=== PATIENT | male | born 1995 | race Caucasian/White ===

== ENCOUNTER 2017-06-03 22:50 | Emergency (ER) | payer BC ==
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
[2017-06-04 00:50] VITALS: BP 118/70
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
== END 2017-06-04 00:45 | disposition home or self-care (01) ==
LOC: MW.ED 22:50
DX: S30.0XXA Contusion of lower back and pelvis, initial encounter (principal); Z88.1 Allergy status to other antibiotic agents; Z88.8 Allergy status to other drugs, medicaments and biological substances; Y04.8XXA Assault by other bodily force, initial encounter
CPT/HCPCS: 72100; 72100-26; 80305; 81001; 99282; 99283

== ENCOUNTER 2017-08-20 19:56 | Emergency (ER) | payer BC ==
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
[2017-08-20] MEDS ORDERED: Acetaminophen/HYDROcodone 325-5 MG Tab PO ONE (20:19)
[2017-08-20] MEDS ORDERED: Acetaminophen 325 MG Tab PO ONE (20:46)
[2017-08-20 21:32] VITALS: BP 120/50
--- NOTE | 2017-08-22 18:05 | CR ---
EXAM DATE: 08/20/17 PATIENT'S AGE: 22 Patient: [facility] Facility: [place], [place] Site . Site : 1995 Study: XRay Extremity Right [id number]/23/2017 8:29:47 PM Ordering Physician: Fani Victor Final Report: INDICATION: pain, crush injury FINDINGS: Three views of the right hand show no evidence of acute fracture or dislocation. No other bony or soft tissue abnormalities identified. Dictated by Herson Estrada MD @ 08/20/2017 9:01:29 PM Dictated by: Herson Estrada MD @ 08/20/2017 21:01:41 (Electronic Signature) Report Signed by Proxy. [facility]
== END 2017-08-20 21:33 | disposition home or self-care (01) ==
LOC: MW.ED 19:56
DX: M79.641 Pain in right hand (principal); F17.210 Nicotine dependence, cigarettes, uncomplicated; Z88.1 Allergy status to other antibiotic agents; Z88.8 Allergy status to other drugs, medicaments and biological substances; Z90.49 Acquired absence of other specified parts of digestive tract
CPT/HCPCS: 73130; 99283; A9270; 99282

== ENCOUNTER 2018-03-01 20:28 | Emergency (ER) | payer BC, OTHER ==
--- NOTE | 2018-03-01 20:54 | EDM.PDOC ---
ED HPI GENERAL MEDICAL PROBLEM - General Chief Complaint: Respiratory Problem Stated Complaint: CHEST PAIN Time Seen by Provider: 03/01/18 20:40 - History of Present Illness INITIAL COMMENTS - FREE TEXT/NARRATIVE: HISTORY AND PHYSICAL: History of present illness: Patient is a 22-year-old male with no pre-existing medical problems that he is aware of but who smokes cigarettes and presents with 4 days of cough productive of green phlegm bodyaches and chills and a sore throat from coughing. He also says that he is coughing so hard that it is occasionally making him gag and vomit. He has no abdominal pain diarrhea and states no chest pain or shortness of breath to me. The patient did not get his flu shot this year and he says that over the last 4 days he has not used any [id number] medications for his cough chills because he does not like to take medications. Review of systems: As per history of present illness and below otherwise all systems reviewed and negative. Past medical history: As per history of present illness and as reviewed below otherwise noncontributory. Surgical history: As per history of present illness and as reviewed below otherwise noncontributory. Social history: No reported history of drug or alcohol abuse. Family history: As per history of present illness and as reviewed below otherwise noncontributory. Physical exam: General: Well-developed well-nourished man who speaks clearly and easily in the ED and is not breathless or have nasal quality to voice. HEENT: Atraumatic, normocephalic, pupils reactive, negative for conjunctival pallor or scleral icterus, mucous membranes moist, throat clear, neck supple, nontender, trachea midline. There is no cervical adenopathy or nuchal rigidity Lungs: Clear to auscultation, breath sounds equal bilaterally, chest nontender. There is no work of breathing wheezing or stridor Heart: S1S2, regular rate and rhythm no overt murmurs Abdomen: Soft, nondistended, nontender. NABS Pelvis: Deferred Genitourinary: Deferred. Rectal: Deferred. Extremities: Atraumatic, negative for cords or calf pain. Neurovascular unremarkable. Neuro: Awake, alert, oriented. Cranial nerves II through XII unremarkable. Cerebellum unremarkable. Motor and sensory unremarkable throughout. Exam nonfocal. Diagnostics: Influenza chest x-ray Therapeutics: spacer He was offered Insty Meds but declines and will fill the prescriptions tomorrow Impression: Acute bronchitis Definitive disposition and diagnosis as appropriate pending reevaluation and review of above. Generalized Pain Score (Numeric/FACES): 2 - Related Data Allergies Allergy/AdvReac Type Severity Reaction Status Date / Time amoxicillin Allergy Intermediate Hives Verified 08/20/17 20:01 morphine Allergy Other Verified 03/01/18 20:40 Penicillins Allergy Other Verified 03/01/18 20:40 Tetanus Vaccines and Toxoid Allergy Airway Verified 08/20/17 20:01 Tightness trazodone Allergy Other Verified 03/01/18 20:40 lorazepam [From Ativan] AdvReac Unknown Other Verified 08/20/17 20:01 Home Meds: Home Meds . [No Known Home Meds] 06/03/17 [History] Past Medical History - Past Health History Medical/Surgical History: Denies Medical/Surgical History - Past Surgical History HEENT Surgical History: Reports: Oral Surgery GI Surgical History: Reports: Appendectomy Social & Family History - Family History Family Medical History: Noncontributory Cardiac: Reports: [place] Endocrine/Metabolic: Reports: Diabetes, type II - Tobacco Use Smoking Status *Q: Current Every Day Smoker Years of Tobacco use: 4 Packs/Tins Daily: 0.5 Used Tobacco, but Quit: Yes Month/Year Tobacco Last Used: 1 - Caffeine Use Caffeine Use: Reports: Soda - Recreational Drug Use Recreational Drug Use: No ED ROS GENERAL - Review of Systems Review Of Systems: ROS reveals no pertinent complaints other than HPI. ED EXAM, GENERAL - Physical Exam Exam: See Below (See dictation) Course - Vital Signs Last Recorded V/S: Last Vital Signs Temp 37.0 C 03/01/18 20:41 Pulse 62 03/01/18 20:41 Resp 18 03/01/18 20:41 BP 130/72 03/01/18 20:41 Pulse Ox 97 03/01/18 20:41 - Orders/Labs/Meds Orders: Active Orders 24 hr Category Date Time Status Chest 2V [CR] Stat Exams 03/01/18 20:50 Taken INFLUENZA A+B AG SCREEN [RM] Stat Lab 03/01/18 21:20 Ordered Departure - Departure Time of Disposition: 21:51 Disposition: Home, Self-Care 01 Condition: Good Clinical Impression: Acute bronchitis Qualifiers: Bronchitis organism: unspecified organism Qualified Code(s): J20.9 - Acute bronchitis, unspecified - Discharge Information Referrals: Neymar Hoyos MD [Primary Care Provider] - Forms: ED Department Discharge Additional Instructions: The following information is given to patients seen in the emergency department who are being discharged to home. This information is to outline your options for follow-up care. We provide all patients seen in our emergency department with a follow-up referral. The need for follow-up, as well as the timing and circumstances, are variable depending upon the specifics of your emergency department visit. If you don't have a primary care physician on staff, we will provide you with a referral. We always advise you to contact your personal physician following an emergency department visit to inform them of the circumstance of the visit and for follow-up with them and/or the need for any referrals to a consulting specialist. The emergency department will also refer you to a specialist when appropriate. This referral assures that you have the opportunity for followup care with a specialist. All of these measure are taken in an effort to provide you with optimal care, which includes your followup. Under all circumstances we always encourage you to contact your private physician who remains a resource for coordinating your care. When calling for followup care, please make the office aware that this follow-up is from your recent emergency room visit. If for any reason you are refused follow-up, please contact the [facility] emergency department at and ask to speak to the emergency department charge nurse. [facility] Primary care- Internal Medicine and Family [place] [phone] Please try to reduce and/or eliminate smoking and push hydration as we discussed. Please call and schedule a follow-up appointment in the clinic for further care and evaluation and return to ER as needed and as discussed. Please use the albuterol inhaler your given with a spacer as well as take the Medrol pack. - My Orders Last 24 Hours: My Active Orders 03/01/18 20:50 Chest 2V [CR] Stat 03/01/18 21:20 INFLUENZA A+B AG SCREEN [RM] Stat - Assessment/Plan Last 24 Hours: My Active Orders 03/01/18 20:50 Chest 2V [CR] Stat 03/01/18 21:20 INFLUENZA A+B AG SCREEN [RM] Stat
[2018-03-02 01:12] VITALS: BP 99/53
--- NOTE | 2018-03-02 10:20 | CR ---
EXAM DATE: 03/01/18 PATIENT'S AGE: 22 Patient: [facility] Facility: [place], [place] Site . Site : 1995 Study: XRay Chest [id number]/4/2018 9:30:58 PM Ordering Physician: Jimy Deal Final Report: INDICATION: chest pain, cough, hx of pneumonia/bronchitis TECHNIQUE: Chest 2 views. COMPARISON: None. FINDINGS: Cardiovascular and mediastinum: Heart size and vasculature are normal in caliber and appearance. Mediastinum is within normal limits. Lungs and pleural spaces: Lungs are clear. No sign of infiltrate or mass. No sign of pleural effusion. No pneumothorax. Bones and soft tissues: No significant findings. IMPRESSION: Unremarkable chest. Dictated by: Scott Rangel MD @ 03/01/2018 21:35:18 (Electronic Signature) Report Signed by Proxy. [facility]
== END 2018-03-01 22:10 | disposition home or self-care (01) ==
LOC: MW.ED 20:28
DX: J20.9 Acute bronchitis, unspecified (principal); J11.1 Influenza due to unidentified influenza virus with other respiratory manifestations; Z88.1 Allergy status to other antibiotic agents; Z88.5 Allergy status to narcotic agent; Z88.0 Allergy status to penicillin; Z88.7 Allergy status to serum and vaccine; Z87.891 Personal history of nicotine dependence
CPT/HCPCS: 71046; 71046-26; 87804; 99283

== ENCOUNTER 2018-06-19 21:12 | Emergency (ER) | payer SELFPAY ==
[2018-06-19] MEDS ORDERED: Benzocaine 20% Topical Spray UD MUCMEM ONE (21:32)
[2018-06-19] MEDS ORDERED: Lidocaine 2% Viscous Solution 15 ML Cup PO ONE (21:32)
--- NOTE | 2018-06-19 21:32 | EDM.PDOC ---
ED HPI GENERAL MEDICAL PROBLEM - General Chief Complaint: ENT Problem Stated Complaint: TOOTH PAIN Time Seen by Provider: 06/19/18 21:19 Source of Information: Reports: Patient History Limitations: Reports: No Limitations - History of Present Illness INITIAL COMMENTS - FREE TEXT/NARRATIVE: HISTORY AND PHYSICAL: History of present illness: Patient is a 23-year-old male who presents to the emergency room today complaints of sore throat and dental pain. He does have multiple dental caries and is concerned that he has either a throat or tooth infection. States he does smoke and has a dry nonproductive cough. Denies any fever, chills, chest pain or shortness of breath. Denies any GI or symptoms. Review of systems: As per history of present illness and below otherwise all systems reviewed and negative. Past medical history: As per history of present illness and as reviewed below otherwise noncontributory. Surgical history: As per history of present illness and as reviewed below otherwise noncontributory. Social history: No reported history of drug or alcohol abuse. Family history: As per history of present illness and as reviewed below otherwise noncontributory. Physical exam: General: Well-developed and well-nourished 23-year-old male. Alert and oriented. Nontoxic appearing and in no acute distress. HEENT: Atraumatic, normocephalic, pupils equal and reactive bilaterally, negative for conjunctival pallor or scleral icterus, mucous membranes moist, mild throat erythema without exudate otherwise throat clear, multiple dental caries noted, neck supple, nontender, trachea midline. No drooling or trismus noted. No meningeal signs Lungs: Clear to auscultation, breath sounds equal bilaterally, chest nontender. Heart: S1S2, regular rate and rhythm without overt murmur Abdomen: Soft, nondistended, nontender. Negative for masses or hepatosplenomegaly. Negative for costovertebral tenderness. Pelvis: Stable nontender. Genitourinary: Deferred. Rectal: Deferred. Skin: Intact, warm, dry. No lesions or rashes noted. Extremities: Atraumatic, negative for cords or calf pain. Neurovascular unremarkable. Neuro: Awake, alert, oriented. Cranial nerves II through XII unremarkable. Cerebellum unremarkable. Motor and sensory unremarkable throughout. Exam nonfocal. Notes: Patient's throat is erythematous and he does have a dry cough along with a long- standing history of smoking. I will treat him with a Z-Reynold and give him dental balls for the dental caries that he has. Her symptoms follow-up with the primary caregiver. Diagnostics: [] Therapeutics: [] Impression: Pharyngitis Dental Caries Plan: 1. Stop smoking. Take antibiotic as directed. 2. Tylenol and/or Ibuprofen as needed for pain. Tramadol for moderate to severe pain. 3. Follow up with primary care provider in the next week. Return to the ED as needed and as discussed. Definitive disposition and diagnosis as appropriate pending reevaluation and review of above. right jaw Pain Score (Numeric/FACES): 6 - Related Data Allergies Allergy/AdvReac Type Severity Reaction Status Date / Time amoxicillin Allergy Intermediate Hives Verified 08/20/17 20:01 morphine Allergy Agitation Verified 06/19/18 21:27 Penicillins Allergy Other Verified 06/19/18 21:27 Tetanus Vaccines and Toxoid Allergy Airway Verified 08/20/17 20:01 Tightness trazodone Allergy Other Verified 06/19/18 21:27 lorazepam [From Ativan] AdvReac Unknown Agitation Verified 06/19/18 21:27 Home Meds: Home Meds . [No Known Home Meds] 06/03/17 [History] Past Medical History - Past Health History Medical/Surgical History: Denies Medical/Surgical History - Past Surgical History HEENT Surgical History: Reports: Oral Surgery GI Surgical History: Reports: Appendectomy Social & Family History - Family History Family Medical History: Noncontributory Cardiac: Reports: [place] Endocrine/Metabolic: Reports: Diabetes, type II - Caffeine Use Caffeine Use: Reports: Soda ED ROS ENT - Review of Systems Review Of Systems: ROS reveals no pertinent complaints other than HPI. ED EXAM, ENT - Physical Exam Exam: See Below (See dictation) Course - Vital Signs Last Recorded V/S: Last Vital Signs Temp 97.7 F 06/19/18 21:50 Pulse 60 06/19/18 21:50 Resp 18 06/19/18 21:50 BP 105/55 L 06/19/18 21:50 Pulse Ox 98 06/19/18 21:50 - Orders/Labs/Meds Meds: Medications Discontinued Medications Generic Name Dose Route Start Last Admin Trade Name Freq PRN Reason Stop Dose Admin Benzocaine 2 each 06/19/18 21:32 06/19/18 21:43 Hurricaine One 20% MUCMEM 06/19/18 21:33 2 each ONETIME ONE Administration Lidocaine HCl 15 ml 06/19/18 21:32 06/19/18 21:43 Xylocaine 2% Viscous PO 06/19/18 21:33 15 ml ONETIME ONE Administration Departure - Departure Time of Disposition: 22:05 Disposition: Home, Self-Care 01 Clinical Impression: Dental caries Pharyngitis Qualifiers: Pharyngitis/tonsillitis etiology: unspecified etiology Qualified Code(s): J02.9 - Acute pharyngitis, unspecified - Discharge Information Instructions: Pharyngitis, [id number] Referrals: PCP,None [Primary Care Provider] - Forms: ED Department Discharge Additional Instructions: The following information is given to patients seen in the emergency department who are being discharged to home. This information is to outline your options for follow-up care. We provide all patients seen in our emergency department with a follow-up referral. The need for follow-up, as well as the timing and circumstances, are variable depending upon the specifics of your emergency department visit. If you don't have a primary care physician on staff, we will provide you with a referral. We always advise you to contact your personal physician following an emergency department visit to inform them of the circumstance of the visit and for follow-up with them and/or the need for any referrals to a consulting specialist. The emergency department will also refer you to a specialist when appropriate. This referral assures that you have the opportunity for follow-up care with a specialist. All of these measure are taken in an effort to provide you with optimal care, which includes your follow-up. Under all circumstances we always encourage you to contact your private physician who remains a resource for coordinating your care. When calling for follow-up care, please make the office aware that this follow-up is from your recent emergency room visit. If for any reason you are refused follow-up, please contact the [facility] Emergency Department at and asked to speak to the emergency department charge nurse. [facility] [address] [place] [id number] 1. Stop smoking. Take antibiotic as directed. 2. Tylenol and/or Ibuprofen as needed for pain. Tramadol for moderate to severe pain. 3. Follow up with primary care provider in the next week. Return to the ED as needed and as discussed.
[2018-06-19 21:53] VITALS: BP 105/55
== END 2018-06-19 21:50 | disposition home or self-care (01) ==
LOC: MW.ED 21:12
DX: K02.9 Dental caries, unspecified (principal); J02.9 Acute pharyngitis, unspecified; Z88.1 Allergy status to other antibiotic agents; Z88.8 Allergy status to other drugs, medicaments and biological substances; Z88.0 Allergy status to penicillin; Z88.5 Allergy status to narcotic agent
CPT/HCPCS: 99283; A9270; 99282

== ENCOUNTER 2018-07-29 15:27 | Emergency (ER) | payer BC ==
--- NOTE | 2018-07-29 15:35 | EDM.PDOC ---
ED HPI GENERAL MEDICAL PROBLEM - General Chief Complaint: Gastrointestinal Problem Stated Complaint: VOMITING Time Seen by Provider: 07/29/18 15:35 Source of Information: Reports: Patient History Limitations: Reports: No Limitations - History of Present Illness INITIAL COMMENTS - FREE TEXT/NARRATIVE: HISTORY AND PHYSICAL: []23-year-old male presenting with vomiting History of Present Illness: []Patient states it started at 6:00 this morning he vomited 10-20 times today Denies any abdominal pain States his throat is sore Review of Systems: As per history of present illness and below otherwise all systems reviewed and negative. Past medical history: As per history of present illness and as reviewed below otherwise noncontributory. Surgical history: As per history of present illness and as reviewed below otherwise noncontributory. Social history: No reported history of drug or alcohol abuse. Family history: As per history of present illness and as reviewed below otherwise noncontributory. Physical exam: Alert and oriented young man answering questions in full sentences without any shortness of breath. Nontoxic in appearance. HEENT: Atraumatic, normocehpalic, pupils reactive, negative for conjunctival pallor or scleral icterus, mucous membranes dry throat clear, neck supple, nontender, trachea midline. Lungs: Clear to auscultation, breath sounds equal bilaterally, chest non tender. Heart: S1S2, regular, negative for clicks, rubs, or JVD. Abdomen: Soft, nondistended, nontender. Negative for masses or hepatossplenmegaly. Negative for costovertebral tenderness. Pelvis: Stable nontender. Genitourinary: Deferred. Rectal: Deferred Extremities: Atraumatic, negative for cords or calf pain. Neurovascular unremarkable. Neuro: Awake, alert, oriented. Cranial nerves II through XII unremarkable. Cerebellum unremarkable. Motor and sensory unremarkable throughout. Exam nonfocal. Discussed with the patient and his that all laboratory values are unremarkable Diagnostics: []CBC CMP amylase lipase rapid strep Therapeutics: []IV fluid Zofran Impression: []Gastroenteritis vomiting Mild dehydration Plan: []Discharged home Zofran ODT Small sips of fluid every 20 minutes while awake Follow-up with your primary care provider in 3 days for reevaluation Return to emergency department as directed and discussed Definitive disposition and diagnosis as appropriate pending reevaluation and review of above. Onset: Today, Sudden Duration: Hour(s): Location: Reports: Abdomen Severity: Mild Improves with: Reports: None Worsens with: Reports: None Associated Symptoms: Reports: No Other Symptoms Throat Pain Score (Numeric/FACES): 4 - Related Data Allergies Allergy/AdvReac Type Severity Reaction Status Date / Time amoxicillin Allergy Intermediate Hives Verified 07/29/18 15:34 morphine Allergy Agitation Verified 07/29/18 15:34 Penicillins Allergy Other Verified 07/29/18 15:34 Tetanus Vaccines and Toxoid Allergy Airway Verified 07/29/18 15:34 Tightness trazodone Allergy Other Verified 07/29/18 15:34 lorazepam [From Ativan] AdvReac Unknown Agitation Verified 07/29/18 15:34 Home Meds: Home Meds Ondansetron [Zofran ODT] 4 mg PO Q6H PRN #12 tab.dis 07/29/18 [Rx] Past Medical History - Past Health History Medical/Surgical History: Denies Medical/Surgical History HEENT History: Reports: None Gastrointestinal History: Reports: None Psychiatric History: Reports: Depression, PTSD - Past Surgical History HEENT Surgical History: Reports: Oral Surgery GI Surgical History: Reports: Appendectomy Social & Family History - Family History Family Medical History: Noncontributory Cardiac: Reports: [place] Endocrine/Metabolic: Reports: Diabetes, type II - Caffeine Use Caffeine Use: Reports: Soda ED ROS GENERAL - Review of Systems Review Of Systems: ROS reveals no pertinent complaints other than HPI. ED EXAM, GI/ABD - Physical Exam Exam: See Below (see dictation) Course - Vital Signs Last Recorded V/S: Last Vital Signs Temp 36.7 C 07/29/18 15:35 Pulse 76 07/29/18 15:35 Resp 15 07/29/18 15:35 BP 108/58 L 07/29/18 15:35 Pulse Ox 96 07/29/18 15:35 - Orders/Labs/Meds Orders: Active Orders 24 hr Category Date Time Status CULTURE STREP A CONFIRMATION [] Stat Lab 07/29/18 15:55 Results STREP SCRN A RAPID W CULT CONF [] Stat Lab 07/29/18 15:55 Ordered Sodium Chloride 0.9% [Normal Saline] 1,000 ml Med 07/29/18 15:40 Active IV STAT Sodium Chloride 0.9% [Saline Flush] Med 07/29/18 15:39 Active 10 ml FLUSH ASDIRECTED PRN Sodium Chloride 0.9% [Saline Flush] Med 07/29/18 15:39 Active 2.5 ml FLUSH ASDIRECTED PRN Saline Lock Insert [OM.PC] Stat Oth 07/29/18 15:39 Ordered Medication Orders Sodium Chloride (Normal Saline) 1,000 mls @ 999 mls/hr IV STAT ONE Stop: 07/29/18 16:40 Last Admin: 07/29/18 15:47 Dose: 999 mls/hr Sodium Chloride (Saline Flush) 10 ml FLUSH ASDIRECTED PRN PRN Reason: Keep Vein Open Sodium Chloride (Saline Flush) 2.5 ml FLUSH ASDIRECTED PRN PRN Reason: Keep Vein Open Labs: Laboratory Tests 07/29/18 07/29/18 Range/Units 15:43 15:43 WBC 9.42 (4.0-11.0) K/uL RBC 4.75 (4.50-5.90) M/uL Hgb 14.8 (13.0-17.0) g/dL Hct 41.4 (38.0-50.0) % MCV 87.2 (80.0-98.0) fL MCH 31.2 (27.0-32.0) pg MCHC 35.7 (31.0-37.0) g/dL RDW Std Deviation 40.6 (28.0-62.0) fl RDW Coeff of Robert 13 (11.0-15.0) % Plt Count 159 (150-400) K/uL MPV 9.80 (7.40-12.00) fL Neut % (Auto) 85.2 H (48.0-80.0) % Lymph % (Auto) 4.5 L (16.0-40.0) % [place] % (Auto) 9.7 (0.0-15.0) % Eos % (Auto) 0.5 (0.0-7.0) % Baso % (Auto) 0.1 (0.0-1.5) % Neut # (Auto) 8.0 H (1.4-5.7) K/uL Lymph # (Auto) 0.4 L (0.6-2.4) K/uL [place] # (Auto) 0.9 H (0.0-0.8) K/uL Eos # (Auto) 0.1 (0.0-0.7) K/uL Baso # (Auto) 0.0 (0.0-0.1) K/uL Nucleated RBC % 0.0 /100WBC Nucleated RBCs # 0 K/uL Sodium 140 (136-148) mmol/L Potassium 3.6 (3.5-5.1) mmol/L Chloride 105 (98-107) mmol/L Carbon Dioxide 26.2 (21.0-32.0) mmol/L BUN 19 H (7.0-18.0) mg/dL Creatinine 0.9 (0.8-1.3) mg/dL Est Cr Clr Drug Dosing 129.83 mL/min Estimated GFR (MDRD) > 60.0 ml/min Glucose 85 (74-106) mg/dL Calcium 9.0 (8.5-10.1) mg/dL Total Bilirubin 1.6 H (0.2-1.0) mg/dL AST 13 L (15-37) IU/L ALT 13 L (14-63) IU/L Alkaline Phosphatase 73 (46-116) U/L Total Protein 7.3 (6.4-8.2) g/dL Albumin 4.4 (3.4-5.0) g/dL Globulin 2.9 (2.0-3.5) g/dL Albumin/Globulin Ratio 1.5 (1.3-2.8) Amylase 39 (25-115) U/L Lipase 123 (73-393) U/L Meds: Medications Generic Name Dose Route Start Last Admin Trade Name Freq PRN Reason Stop Dose Admin Sodium Chloride 1,000 mls @ 999 mls/hr 07/29/18 15:40 07/29/18 15:47 Normal Saline IV 07/29/18 16:40 999 mls/hr STAT ONE Administration Sodium Chloride 10 ml 07/29/18 15:39 Saline Flush FLUSH ASDIRECTED PRN Keep Vein Open Sodium Chloride 2.5 ml 07/29/18 15:39 Saline Flush FLUSH ASDIRECTED PRN Keep Vein Open Discontinued Medications Generic Name Dose Route Start Last Admin Trade Name Freq PRN Reason Stop Dose Admin Ondansetron HCl 4 mg 07/29/18 15:40 07/29/18 15:49 Zofran IVPUSH 07/29/18 15:41 4 mg ONETIME ONE Administration Departure - Departure Time of Disposition: 16:19 Disposition: Home, Self-Care 01 Condition: Good Clinical Impression: Vomiting, Gastroenteritis - Discharge Information *PRESCRIPTION DRUG MONITORING PROGRAM REVIEWED*: Not Applicable *COPY OF PRESCRIPTION DRUG MONITORING REPORT IN PATIENT HAMIDA: Not Applicable Prescriptions: Ondansetron [Zofran ODT] 4 mg PO Q6H PRN #12 tab.dis PRN Reason: Nausea/Vomiting Instructions: Nausea and Vomiting, Adult, Viral Gastroenteritis, Adult, Easy-to -Read Referrals: PCP,None [Primary Care Provider] - Forms: ED Department Discharge Additional Instructions: The following information is given to patients seen in the emergency department who are being discharged to home. This information is to outline your options for follow-up care. We provide all patients seen in our emergency department with a follow-up referral. The need for follow-up, as well as the timing and circumstances, are variable depending upon the specifics of your emergency department visit. If you don't have a primary care physician on staff, we will provide you with a referral. We always advise you to contact your personal physician following an emergency department visit to inform them of the circumstance of the visit and for follow-up with them and/or the need for any referrals to a consulting specialist. The emergency department will also refer you to a specialist when appropriate. This referral assures that you have the opportunity for followup care with a specialist. All of these measure are taken in an effort to provide you with optimal care, which includes your followup. Under all circumstances we always encourage you to contact your private physician who remains a resource for coordinating your care. When calling for followup care, please make the office aware that this follow-up is from your recent emergency room visit. If for any reason you are refused follow-up, please contact the [facility] emergency department at and asked to speak to the emergency department charge nurse. Discharged home Zofran ODT Small sips of fluid every 20 minutes while awake Follow-up with your primary care provider in 3 days for reevaluation Return to emergency department as directed and discussed - My Orders Last 24 Hours: My Active Orders 07/29/18 15:39 Sodium Chloride 0.9% [Saline Flush] 10 ml FLUSH ASDIRECTED PRN Sodium Chloride 0.9% [Saline Flush] 2.5 ml FLUSH ASDIRECTED PRN Saline Lock Insert [OM.PC] Stat 07/29/18 15:40 Sodium Chloride 0.9% [Normal Saline] 1,000 ml IV STAT 07/29/18 15:55 CULTURE STREP A CONFIRMATION [RM] Stat STREP SCRN A RAPID W CULT CONF [RM] Stat - Assessment/Plan Last 24 Hours: My Active Orders 07/29/18 15:39 Sodium Chloride 0.9% [Saline Flush] 10 ml FLUSH ASDIRECTED PRN Sodium Chloride 0.9% [Saline Flush] 2.5 ml FLUSH ASDIRECTED PRN Saline Lock Insert [OM.PC] Stat 07/29/18 15:40 Sodium Chloride 0.9% [Normal Saline] 1,000 ml IV STAT 07/29/18 15:55 CULTURE STREP A CONFIRMATION [RM] Stat STREP SCRN A RAPID W CULT CONF [RM] Stat
[2018-07-29] MEDS ORDERED: Sodium Chloride 0.9% 10 ML Syringe FLUSH PRN (15:39)
[2018-07-29] MEDS ORDERED: Sodium Chloride 0.9% 2.5 ML Syringe FLUSH PRN (15:39)
[2018-07-29] MEDS ORDERED: Ondansetron 4 MG/2 ML SDV IVPUSH ONE (15:40)
[2018-07-29] MEDS ORDERED: Sodium Chloride 0.9% 1,000 ML IV ONE (15:40)
[2018-07-29 15:41] VITALS: BP 108/58
[2018-07-29 16:12] LABS: CHLORIDE,CL 105 mmol/L (98-107); SODIUM,NA 140 mmol/L (136-148)
== END 2018-07-29 16:35 | disposition home or self-care (01) ==
LOC: MW.ED 15:27
DX: K52.9 Noninfective gastroenteritis and colitis, unspecified (principal); Z88.1 Allergy status to other antibiotic agents; Z88.5 Allergy status to narcotic agent; Z88.8 Allergy status to other drugs, medicaments and biological substances
CPT/HCPCS: 36415; 80053; 82150; 83690; 85025; 87081; 87880; 96361; 96374; 99284; J2405; J7040

== ENCOUNTER 2019-01-21 07:22 | Emergency (ER) | payer BC ==
--- NOTE | 2019-01-21 07:35 | EDM.PDOC ---
ED HPI GENERAL MEDICAL PROBLEM - General Chief Complaint: Skin Complaint Stated Complaint: BLISTERS OR RASH ALL OVER HANDS Time Seen by Provider: 01/21/19 07:35 Source of Information: Reports: Patient - History of Present Illness INITIAL COMMENTS - FREE TEXT/NARRATIVE: HISTORY AND PHYSICAL: History of present illness: [Patient presents with itchy rash on palms and dorsum of hands as well as has one lesion on his mouth/lip he has had similar symptoms in the past with hand- [id number] disease/herpangina last year at this time He has no fever nausea vomiting chills sweats he does have persistent cough over the last 4 days no shortness of breath or wheeze no chest pain headache dizziness or palpitation no bowel or urine symptoms ] Review of systems: As per history of present illness and below otherwise all systems reviewed and negative. Past medical history: As per history of present illness and as reviewed below otherwise noncontributory. Surgical history: As per history of present illness and as reviewed below otherwise noncontributory. Social history: No reported history of drug or alcohol abuse. Family history: As per history of present illness and as reviewed below otherwise noncontributory. Physical exam: HEENT: Atraumatic, normocephalic, pupils reactive, negative for conjunctival pallor or scleral icterus, mucous membranes moist, throat clear, neck supple, nontender, trachea midline. Lungs: Clear to auscultation, breath sounds equal bilaterally, chest nontender. Heart: S1S2, regular, negative for clicks, rubs, or JVD. Abdomen: Soft, nondistended, nontender. Negative for masses or hepatosplenomegaly. Negative for costovertebral tenderness. Pelvis: Stable nontender. Genitourinary: Deferred. Rectal: Deferred. Extremities: Atraumatic, negative for cords or calf pain. Neurovascular unremarkable. Neuro: Awake, alert, oriented. Cranial nerves II through XII unremarkable. Cerebellum unremarkable. Motor and sensory unremarkable throughout. Exam nonfocal. Skin as per history of present illness Diagnostics: [Influenza Chest 1 view ] Therapeutics: [Medrol Dosepak Famotidine Benadryl ]24-48 hours off work Drug dose pack Impression: [ swdf-ntip-srm-mouth disease ] Definitive disposition and diagnosis as appropriate pending reevaluation and review of above. - Related Data Allergies Allergy/AdvReac Type Severity Reaction Status Date / Time amoxicillin Allergy Intermediate Hives Verified 01/21/19 07:41 morphine Allergy Agitation Verified 01/21/19 07:41 Penicillins Allergy Other Verified 01/21/19 07:41 Tetanus Vaccines and Toxoid Allergy Airway Verified 01/21/19 07:41 Tightness trazodone Allergy Other Verified 01/21/19 07:41 lorazepam [From Ativan] AdvReac Unknown Agitation Verified 01/21/19 07:41 Home Meds: Home Meds . [No Known Home Meds] 10/30/18 [History] Past Medical History - Past Health History Medical/Surgical History: Denies Medical/Surgical History HEENT History: Reports: None Cardiovascular History: Reports: None Respiratory History: Reports: Pneumonia, Recurrent Gastrointestinal History: Reports: None Genitourinary History: Reports: None Musculoskeletal History: Reports: Arthritis Neurological History: Reports: None Psychiatric History: Reports: Depression, PTSD Endocrine/Metabolic History: Reports: None Hematologic History: Reports: None Immunologic History: Reports: None Oncologic (Cancer) History: Reports: None Dermatologic History: Reports: None - Infectious Disease History Infectious Disease History: Reports: None - Past Surgical History HEENT Surgical History: Reports: Oral Surgery GI Surgical History: Reports: Appendectomy Social & Family History - Family History Family Medical History: Noncontributory Cardiac: Reports: [place] Endocrine/Metabolic: Reports: Diabetes, type II - Caffeine Use Caffeine Use: Reports: Soda ED ROS GENERAL - Review of Systems Review Of Systems: See Below ED EXAM, SKIN/RASH Exam: See Below Course - Vital Signs Last Recorded V/S: Last Vital Signs Temp 97.9 F 01/21/19 07:40 Pulse 53 L 01/21/19 07:40 Resp 16 01/21/19 07:40 BP 101/51 L 01/21/19 07:40 Pulse Ox 100 01/21/19 07:40 - Orders/Labs/Meds Meds: Medications Discontinued Medications Generic Name Dose Route Start Last Admin Trade Name Freq PRN Reason Stop Dose Admin Diphenhydramine HCl 50 mg 01/21/19 07:48 01/21/19 07:53 Benadryl PO 01/21/19 07:49 50 mg ONETIME ONE Administration Famotidine 20 mg 01/21/19 07:49 01/21/19 07:53 Pepcid PO 01/21/19 07:50 20 mg ONETIME ONE Administration Departure - Departure Time of Disposition: 08:23 Disposition: Home, Self-Care 01 Condition: Good Clinical Impression: Hand, foot and mouth disease - Discharge Information Referrals: Elvis Marie MD [Primary Care Provider] - Forms: ED Department Discharge Additional Instructions: [id number] symptomatic therapy is discussed Medications as prescribed Benadryl and or Zantac pain benefit for itch Rest fluids nutrition All up with primary care in 2 weeks sooner as needed Return if symptoms persist or worsen [facility] [address] [place] [id number] The following information is given to patients seen in the emergency department who are being discharged to home. This information is to outline your options for follow-up care. We provide all patients seen in our emergency department with a follow-up referral. The need for follow-up, as well as the timing and circumstances, are variable depending upon the specifics of your emergency department visit. If you don't have a primary care physician on staff, we will provide you with a referral. We always advise you to contact your personal physician following an emergency department visit to inform them of the circumstance of the visit and for follow-up with them and/or the need for any referrals to a consulting specialist. The emergency department will also refer you to a specialist when appropriate. This referral assures that you have the opportunity for follow-up care with a specialist. All of these measure are taken in an effort to provide you with optimal care, which includes your follow-up. Under all circumstances we always encourage you to contact your private physician who remains a resource for coordinating your care. When calling for follow-up care, please make the office aware that this follow-up is from your recent emergency room visit. If for any reason you are refused follow-up, please contact the [facility] emergency department at and asked to speak to the emergency department charge nurse.
[2019-01-21 07:42] VITALS: BP 101/51
[2019-01-21] MEDS ORDERED: diphenhydrAMINE 50 MG Cap PO ONE (07:48)
[2019-01-21] MEDS ORDERED: Famotidine 20 MG Tab PO ONE (07:49)
--- NOTE | 2019-01-21 08:21 | CR ---
INDICATION: PAIN. PT STATES BILATERAL ARM, NECK, ETC. BLISTERS FOR 4 DAYS INDICATION: Pain. TECHNIQUE: Chest single-view. COMPARISON: 10/30/2018. FINDINGS: Cardiovascular and mediastinum: Heart size and vasculature are normal in caliber and appearance. Mediastinum is within normal limits. Lungs and pleural spaces: Lungs are clear. No sign of infiltrate or mass. No sign of pleural effusion. No pneumothorax. Azygos fissure, a normal anatomic variant. Bones and soft tissues: No significant findings. IMPRESSION: Lungs are clear. Dictated by Bird Pfeiffer MD @ 01/21/2019 8:20:18 AM Dictated by: Bird Pfeiffer MD @ 01/21/2019 08:20:22 (Electronically Signed)
== END 2019-01-21 08:47 | disposition home or self-care (01) ==
LOC: MW.ED 07:22
DX: B08.4 Enteroviral vesicular stomatitis with exanthem (principal); Z88.1 Allergy status to other antibiotic agents; Z88.5 Allergy status to narcotic agent; Z88.0 Allergy status to penicillin; Z88.7 Allergy status to serum and vaccine
CPT/HCPCS: 71045; 87804; 99283; A9270

== ENCOUNTER 2019-03-21 10:21 | Observation (INO) | payer BC, OTHER ==
--- NOTE | 2019-03-21 10:30 | EDM.PDOC ---
ED HPI GENERAL MEDICAL PROBLEM - General Chief Complaint: Gastrointestinal Problem Stated Complaint: bloody stool Time Seen by Provider: 03/21/19 10:30 Source of Information: Reports: Patient - History of Present Illness INITIAL COMMENTS - FREE TEXT/NARRATIVE: HISTORY AND PHYSICAL: History of present illness: [Patient reports bloody stool this morning and dark stools over the last month presents with complaint of bright red blood per rectum along with epigastric pain 3 out of 10 nonradiating no fever, patient has had intermittent nausea no vomiting no chills or sweats she does complain of being lightheaded and dizzy Pain is worsened with food hence he has not been eating] Review of systems: As per history of present illness and below otherwise all systems reviewed and negative. Past medical history: As per history of present illness and as reviewed below otherwise noncontributory. Surgical history: As per history of present illness and as reviewed below otherwise noncontributory. Social history: No reported history of drug or alcohol abuse. Family history: As per history of present illness and as reviewed below otherwise noncontributory. Physical exam: HEENT: Atraumatic, normocephalic, pupils reactive, negative for conjunctival pallor or scleral icterus, mucous membranes moist, throat clear, neck supple, nontender, trachea midline. Lungs: Clear to auscultation, breath sounds equal bilaterally, chest nontender. Heart: S1S2, regular, negative for clicks, rubs, or JVD. Abdomen: Soft, nondistended, nontender. Negative for masses or hepatosplenomegaly. Negative for costovertebral tenderness. Pelvis: Stable nontender. Genitourinary: Deferred. Rectal: Guaiac is negative although I was unable to obtain any stool for the sample no mass scar or lesion internal or external noted Extremities: Atraumatic, negative for cords or calf pain. Neurovascular unremarkable. Neuro: Awake, alert, oriented. Cranial nerves II through XII unremarkable. Cerebellum unremarkable. Motor and sensory unremarkable throughout. Exam nonfocal. Diagnostics: [CBC CMP lipase troponin lactic acid CT abdomen pelvis with contrast ] Therapeutics: [Saline bolus Normal saline 1 25 mL per hour Proton X Zofran ] Impression: [ hypotension Patient admitted for observation and repeat hemoglobin Serial guaiac stools ] Definitive disposition and diagnosis as appropriate pending reevaluation and review of above. Abdomen Pain Score (Numeric/FACES): 3 - Related Data Allergies Allergy/AdvReac Type Severity Reaction Status Date / Time amoxicillin Allergy Intermediate Hives Verified 03/21/19 10:32 morphine Allergy Agitation Verified 03/21/19 10:32 Penicillins Allergy Other Verified 03/21/19 10:32 Tetanus Vaccines and Toxoid Allergy Airway Verified 03/21/19 10:32 Tightness trazodone Allergy Other Verified 03/21/19 10:32 lorazepam [From Ativan] AdvReac Unknown Agitation Verified 03/21/19 10:32 Home Meds: Home Meds . [No Known Home Meds] 10/30/18 [History] Past Medical History - Past Health History Medical/Surgical History: Denies Medical/Surgical History HEENT History: Reports: None Cardiovascular History: Reports: None Respiratory History: Reports: Pneumonia, Recurrent Gastrointestinal History: Reports: None Genitourinary History: Reports: None Musculoskeletal History: Reports: Arthritis Neurological History: Reports: None Psychiatric History: Reports: Depression, PTSD Endocrine/Metabolic History: Reports: None Hematologic History: Reports: None Immunologic History: Reports: None Oncologic (Cancer) History: Reports: None Dermatologic History: Reports: None - Infectious Disease History Infectious Disease History: Reports: None - Past Surgical History HEENT Surgical History: Reports: Oral Surgery GI Surgical History: Reports: Appendectomy Social & Family History - Family History Family Medical History: Noncontributory Cardiac: Reports: [place] Endocrine/Metabolic: Reports: Diabetes, type II - Caffeine Use Caffeine Use: Reports: Soda ED ROS GENERAL - Review of Systems Review Of Systems: See Below ED EXAM, GENERAL - Physical Exam Exam: See Below Course - Vital Signs Last Recorded V/S: Last Vital Signs Temp 96.9 F 03/21/19 10:29 Pulse 60 03/21/19 13:00 Resp 18 03/21/19 13:00 BP 123/81 03/21/19 13:00 Pulse Ox 97 03/21/19 13:00 - Orders/Labs/Meds Orders: Active Orders 24 hr Category Date Time Status EKG Documentation Completion [RC] STAT Care 03/21/19 13:26 Active CDIFF TOX A+B [OP] Stat Lab 03/21/19 10:28 Ordered CULTURE STOOL + CAMPY+SHIGATOX [RM] Stat Lab 03/21/19 10:28 Ordered Guaiac [OCCULT BLOOD DIAGNOSTIC] [OP] Stat Lab 03/21/19 10:22 Ordered TROPONIN I [CHEM] Stat Lab 03/21/19 13:28 Received Sodium Chloride 0.9% [Normal Saline] 1,000 ml Med 03/21/19 13:09 Active IV .Bolus Isolation [COMM] Stat Oth 03/21/19 10:28 Ordered Medication Orders Sodium Chloride (Normal Saline) 1,000 mls @ 125 mls/hr IV .Bolus ONE Stop: 03/21/19 21:08 Last Admin: 03/21/19 13:11 Dose: 125 mls/hr Labs: Laboratory Tests 03/21/19 03/21/19 03/21/19 Range/Units 10:51 10:51 10:51 WBC 4.91 (4.0-11.0) K/uL RBC 4.65 (4.50-5.90) M/uL Hgb 14.2 (13.0-17.0) g/dL Hct 41.7 (38.0-50.0) % MCV 89.7 (80.0-98.0) fL MCH 30.5 (27.0-32.0) pg MCHC 34.1 (31.0-37.0) g/dL RDW Std Deviation 40.9 (28.0-62.0) fl RDW Coeff of Robert 13 (11.0-15.0) % Plt Count 200 (150-400) K/uL MPV 10.00 (7.40-12.00) fL Nucleated RBC % 0.0 /100WBC Nucleated RBCs # 0 K/uL Lactate (0.20-2.00) mmol/L Sodium 143 (136-148) mmol/L Potassium 3.7 (3.5-5.1) mmol/L Chloride 108 H (98-107) mmol/L Carbon Dioxide 28.8 (21.0-32.0) mmol/L BUN 14 (7.0-18.0) mg/dL Creatinine 1.0 (0.8-1.3) mg/dL Est Cr Clr Drug Dosing 116.85 mL/min Estimated GFR (MDRD) > 60.0 ml/min Glucose 94 (74-106) mg/dL Calcium 8.6 (8.5-10.1) mg/dL Total Bilirubin 0.9 (0.2-1.0) mg/dL AST 12 L (15-37) IU/L ALT 15 (14-63) IU/L Alkaline Phosphatase 53 (46-116) U/L Total Protein 6.7 (6.4-8.2) g/dL Albumin 4.0 (3.4-5.0) g/dL Globulin 2.7 (2.6-4.0) g/dL Albumin/Globulin Ratio 1.5 (0.9-1.6) Urine Color Urine Appearance Urine pH (5.0-8.0) Ur Specific [place] (1.001-1.035) Urine Protein (NEGATIVE) mg/dL Urine Glucose (UA) (NEGATIVE) mg/dL Urine Ketones (NEGATIVE) mg/dL Urine Occult Blood (NEGATIVE) Urine Nitrite (NEGATIVE) Urine Bilirubin (NEGATIVE) Urine Urobilinogen (<2.0) EU/dL Ur Leukocyte Esterase (NEGATIVE) Blood Type O POSITIVE Antibody Screen NEGATIVE 03/21/19 03/21/19 Range/Units 13:00 13:28 WBC (4.0-11.0) K/uL RBC (4.50-5.90) M/uL Hgb (13.0-17.0) g/dL Hct (38.0-50.0) % MCV (80.0-98.0) fL MCH (27.0-32.0) pg MCHC (31.0-37.0) g/dL RDW Std Deviation (28.0-62.0) fl RDW Coeff of Robert (11.0-15.0) % Plt Count (150-400) K/uL MPV (7.40-12.00) fL Nucleated RBC % /100WBC Nucleated RBCs # K/uL Lactate 0.5 (0.20-2.00) mmol/L Sodium (136-148) mmol/L Potassium (3.5-5.1) mmol/L Chloride (98-107) mmol/L Carbon Dioxide (21.0-32.0) mmol/L BUN (7.0-18.0) mg/dL Creatinine (0.8-1.3) mg/dL Est Cr Clr Drug Dosing mL/min Estimated GFR (MDRD) ml/min Glucose (74-106) mg/dL Calcium (8.5-10.1) mg/dL Total Bilirubin (0.2-1.0) mg/dL AST (15-37) IU/L ALT (14-63) IU/L Alkaline Phosphatase (46-116) U/L Total Protein (6.4-8.2) g/dL Albumin (3.4-5.0) g/dL Globulin (2.6-4.0) g/dL Albumin/Globulin Ratio (0.9-1.6) Urine Color YELLOW Urine Appearance CLEAR Urine pH 6.5 (5.0-8.0) Ur Specific [place] <= 1.005 (1.001-1.035) Urine Protein NEGATIVE (NEGATIVE) mg/dL Urine Glucose (UA) NEGATIVE (NEGATIVE) mg/dL Urine Ketones NEGATIVE (NEGATIVE) mg/dL Urine Occult Blood NEGATIVE (NEGATIVE) Urine Nitrite NEGATIVE (NEGATIVE) Urine Bilirubin NEGATIVE (NEGATIVE) Urine Urobilinogen 0.2 (<2.0) EU/dL Ur Leukocyte Esterase NEGATIVE (NEGATIVE) Blood Type Antibody Screen Meds: Medications Generic Name Dose Route Start Last Admin Trade Name Freq PRN Reason Stop Dose Admin Sodium Chloride 1,000 mls @ 125 mls/hr 03/21/19 13:09 03/21/19 13:11 Normal Saline IV 03/21/19 21:08 125 mls/hr .Bolus ONE Administration Discontinued Medications Generic Name Dose Route Start Last Admin Trade Name Freq PRN Reason Stop Dose Admin Sodium Chloride 1,000 mls @ 999 mls/hr 03/21/19 10:53 03/21/19 11:26 Normal Saline IV 03/21/19 11:53 999 mls/hr STAT ONE Administration Iopamidol 100 ml 03/21/19 12:05 03/21/19 12:05 Isovue Multipack-370 (76%) IVPUSH 03/21/19 12:06 100 ml ONETIME STA Administration Pantoprazole Sodium 80 mg 03/21/19 11:05 03/21/19 11:26 Protonix Iv IVPUSH 03/21/19 11:06 80 mg .BOLUS ONE Administration Departure - Departure Time of Disposition: 13:40 Disposition: Refer to Observation Condition: Fair Clinical Impression: Hypotension - Discharge Information Referrals: PCP,None [Primary Care Provider] - Forms: ED Department Discharge - My Orders Last 24 Hours: My Active Orders 03/21/19 10:22 Guaiac [OCCULT BLOOD DIAGNOSTIC] [OP] Stat 03/21/19 10:28 CDIFF TOX A+B [OP] Stat CULTURE STOOL + CAMPY+SHIGATOX [RM] Stat Isolation [COMM] Stat 03/21/19 13:09 Sodium Chloride 0.9% [Normal Saline] 1,000 ml IV .Bolus 03/21/19 13:26 EKG Documentation Completion [RC] STAT 03/21/19 13:28 TROPONIN I [CHEM] Stat - Assessment/Plan Last 24 Hours: My Active Orders 03/21/19 10:22 Guaiac [OCCULT BLOOD DIAGNOSTIC] [OP] Stat 03/21/19 10:28 CDIFF TOX A+B [OP] Stat CULTURE STOOL + CAMPY+SHIGATOX [RM] Stat Isolation [COMM] Stat 03/21/19 13:09 Sodium Chloride 0.9% [Normal Saline] 1,000 ml IV .Bolus 03/21/19 13:26 EKG Documentation Completion [RC] STAT 03/21/19 13:28 TROPONIN I [CHEM] Stat
[2019-03-21] MEDS ORDERED: Sodium Chloride 0.9% 1,000 ML IV ONE ×2 (10:53→13:09)
[2019-03-21] MEDS ORDERED: Pantoprazole 40 MG Vial IVPUSH ONE (11:05)
[2019-03-21 11:30] LABS: CHLORIDE,CL 108 mmol/L (98-107); SODIUM,NA 143 mmol/L (136-148)
[2019-03-21] MEDS ORDERED: Iopamidol 755 MG/ML 500 ML Multipack Bottle IVPUSH STA (12:05)
--- NOTE | 2019-03-21 12:46 | CT ---
CT of the abdomen and pelvis with contrast. HISTORY: Pain TECHNIQUE: Axial CT images were obtained of the abdomen and pelvis following administration of 100 mL of Isovue-370 in the right antecubital fossa without complication. Coronal and sagittal reconstructions obtained. FINDINGS: The lung bases are clear, no pleural effusion. The liver, spleen, adrenal glands, and pancreas appear normal. The gallbladder is normal. There is no bulky retroperitoneal lymphadenopathy or abdominal ascites. The kidneys enhance and function symmetrically without evidence of obstructive uropathy. The large and small bowel are normal in caliber without evidence of obstruction. No focal pericolonic inflammation or stranding. Appendectomy. No bulky pelvic lymphadenopathy or free pelvic fluid. Urinary bladder is normal. No suspicious osseous abnormalities identified. IMPRESSION: No acute cardiopulmonary findings.
--- NOTE | 2019-03-21 14:15 | PCM.HP ---
H&P History of Present Illness - General Date of Service: 03/21/19 Admit Problem/Dx: Admission Diagnosis/Problem Admission Diagnosis/Problem Hypotension Source of Information: Patient History Limitations: Reports: No Limitations - History of Present Illness Initial Comments - Free Text/Narative: This 23 year old male with no significant pmh presented to the ED today with concerns of bloody stools with associated nausea. he also complains of dizziness when getting up. No passing out, no chest pain or palpitations. He reports he has been having these blood stools for a couple weeks and finally got off of work and felt he should be evaluated. He reports not being able to eat much, but when working for the 2 weeks he ate a lot of pizza and hot pockets. He reports some heartburn along with LLQ pain. He report pain before and after stools, which is sharp in nature. He denies hemorrhoids. He reports family history of Crohns disease, with a brother and Uncle. He denies alcohol use and no NSAID use. He denies recreational drug use. Smokes 1 pack every few days and chews between 1-3 tins daily of tobacco. He reports an appendectomy. No other abdominal surgeries or trauma recently. In the ED No leukocytosis noted, afebrile. Lactate 0.5. UA negative. Abdominal CT with contrast, unremarkable.EKG Sinus rikki, 40s. BP 90-120/50s. He was given NS bolus and IVFs along with Protonix 80 mg IV. He will be admitted observation for LLQ and dizziness. Abdomen Pain Score (Numeric/FACES): 3 - Related Data Allergies/Adverse Reactions: Allergies Allergy/AdvReac Type Severity Reaction Status Date / Time amoxicillin Allergy Intermediate Hives Verified 03/21/19 10:32 morphine Allergy Agitation Verified 03/21/19 10:32 Penicillins Allergy Other Verified 03/21/19 10:32 Tetanus Vaccines and Toxoid Allergy Airway Verified 03/21/19 10:32 Tightness trazodone Allergy Other Verified 03/21/19 10:32 lorazepam [From Ativan] AdvReac Unknown Agitation Verified 03/21/19 10:32 Home Medications: Home Meds . [No Known Home Meds] 10/30/18 [History] Past Medical History - Past Health History Medical/Surgical History: Denies Medical/Surgical History HEENT History: Reports: None Cardiovascular History: Reports: None. Denies: CAD, Hypertension, NM Respiratory History: Reports: Pneumonia, Recurrent. Denies: Asthma Gastrointestinal History: Reports: None. Denies: Celiac Disease, Diverticulosis , GI Bleed, Hemorrhoids, Inflammatory Bowel Disease, Irritable Bowel Syndrome Genitourinary History: Reports: None. Denies: Chronic Renal Insuffiency Musculoskeletal History: Reports: Arthritis Neurological History: Reports: None. Denies: CVA Psychiatric History: Reports: Depression, PTSD Endocrine/Metabolic History: Reports: None. Denies: Diabetes, Type II Hematologic History: Reports: None Immunologic History: Reports: None Oncologic (Cancer) History: Reports: None Dermatologic History: Reports: None - Infectious Disease History Infectious Disease History: Reports: None - Past Surgical History HEENT Surgical History: Reports: Oral Surgery GI Surgical History: Reports: Appendectomy Social & Family History - Family History Family Medical History: Noncontributory Cardiac: Reports: [place] Endocrine/Metabolic: Reports: Diabetes, type II - Tobacco Use Smoking Status *Q: Current Every Day Smoker Tobacco Use Within Last Twelve Months: Cigarettes, Smokeless Tobacco Years of Tobacco use: 8 Packs/Tins Daily: 1 - Caffeine Use Caffeine Use: Reports: Soda - Alcohol Use Alcohol Use History: No Alcohol Use Frequency: Rarely, Socially - Recreational Drug Use Recreational Drug Use: No - Living Situation & Occupation Living situation: Reports: Single Occupation: Employed H&P Review of Systems - Review of Systems: Review Of Systems: See Below General: Reports: Weakness, Decreased Appetite. Denies: Fever, Chills, Malaise HEENT: Reports: Vertigo. Denies: Ear Pain, Headaches, Sinus Congestion, Sore Throat, Visual Changes Pulmonary: Reports: No Symptoms. Denies: Shortness of Breath, Wheezing, Cough Cardiovascular: Reports: Lightheadedness. Denies: Chest Pain, Edema, Syncope, Blood Pressure Problem Gastrointestinal: Reports: Abdominal Pain (LLQ), Black Stool, Bloody Stool, Diarrhea, Decreased Appetite, Nausea, Other (pain with stools). Denies: Distension, Vomiting Genitourinary: Reports: No Symptoms. Denies: Dysuria, Frequency, Burning Musculoskeletal: Reports: No Symptoms Skin: Reports: No Symptoms Psychiatric: Reports: No Symptoms Neurological: Reports: No Symptoms Hematologic/Lymphatic: Reports: No Symptoms Immunologic: Reports: No Symptoms Exam - Exam Exam: See Below - Vital Signs Vital Signs: Last Vital Signs Temp 96.9 F 03/21/19 10:29 Pulse 56 L 03/21/19 13:35 Resp 18 03/21/19 13:35 BP 100/56 L 03/21/19 13:35 Pulse Ox 98 03/21/19 13:35 Weight: 71.4 kg - Exam General: Alert, Oriented, Cooperative HEENT: Conjunctiva Clear, Mucosa Moist & [place], Pupils Equal Lungs: Clear to Auscultation, Normal Respiratory Effort Cardiovascular: Regular Rhythm, Normal S1, Normal S2, Bradycardia. No: Systolic Murmur GI/Abdominal Exam: Normal Bowel Sounds, Soft, No Distention, No Mass, Tender ( LLQ) Rectal (Males) Exam: Normal Rectal Tone, Bloody Stool (streak of blood noted on gloved finger. ), Tenderness. No: Hemorrhoids (external or internal), Rectal Fissure Extremities: Normal Inspection, Normal Range of Motion, Non-Tender, No Pedal Edema Neuro Extensive - Mental Status: Alert, Oriented x3 Neuro Extensive - Motor, Sensory, Reflexes: CN II-XII Intact, Normal Gait Psychiatric: Alert, Normal Affect, Normal Mood - Patient Data Lab Results Last 24 hrs: Laboratory Results - last 24 hr 03/21/19 03/21/19 03/21/19 Range/Units 10:51 10:51 10:51 WBC 4.91 (4.0-11.0) K/uL RBC 4.65 (4.50-5.90) M/uL Hgb 14.2 (13.0-17.0) g/dL Hct 41.7 (38.0-50.0) % MCV 89.7 (80.0-98.0) fL MCH 30.5 (27.0-32.0) pg MCHC 34.1 (31.0-37.0) g/dL RDW Std Deviation 40.9 (28.0-62.0) fl RDW Coeff of Robert 13 (11.0-15.0) % Plt Count 200 (150-400) K/uL MPV 10.00 (7.40-12.00) fL Nucleated RBC % 0.0 /100WBC Nucleated RBCs # 0 K/uL Lactate (0.20-2.00) mmol/L Sodium 143 (136-148) mmol/L Potassium 3.7 (3.5-5.1) mmol/L Chloride 108 H (98-107) mmol/L Carbon Dioxide 28.8 (21.0-32.0) mmol/L BUN 14 (7.0-18.0) mg/dL Creatinine 1.0 (0.8-1.3) mg/dL Est Cr Clr Drug Dosing 116.85 mL/min Estimated GFR (MDRD) > 60.0 ml/min Glucose 94 (74-106) mg/dL Calcium 8.6 (8.5-10.1) mg/dL Total Bilirubin 0.9 (0.2-1.0) mg/dL AST 12 L (15-37) IU/L ALT 15 (14-63) IU/L Alkaline Phosphatase 53 (46-116) U/L Troponin I (0.000-0.056) ng/mL Total Protein 6.7 (6.4-8.2) g/dL Albumin 4.0 (3.4-5.0) g/dL Globulin 2.7 (2.6-4.0) g/dL Albumin/Globulin Ratio 1.5 (0.9-1.6) Urine Color Urine Appearance Urine pH (5.0-8.0) Ur Specific [place] (1.001-1.035) Urine Protein (NEGATIVE) mg/dL Urine Glucose (UA) (NEGATIVE) mg/dL Urine Ketones (NEGATIVE) mg/dL Urine Occult Blood (NEGATIVE) Urine Nitrite (NEGATIVE) Urine Bilirubin (NEGATIVE) Urine Urobilinogen (<2.0) EU/dL Ur Leukocyte Esterase (NEGATIVE) Blood Type O POSITIVE Antibody Screen NEGATIVE 03/21/19 03/21/19 03/21/19 Range/Units 13:00 13:28 13:28 WBC (4.0-11.0) K/uL RBC (4.50-5.90) M/uL Hgb (13.0-17.0) g/dL Hct (38.0-50.0) % MCV (80.0-98.0) fL MCH (27.0-32.0) pg MCHC (31.0-37.0) g/dL RDW Std Deviation (28.0-62.0) fl RDW Coeff of Robert (11.0-15.0) % Plt Count (150-400) K/uL MPV (7.40-12.00) fL Nucleated RBC % /100WBC Nucleated RBCs # K/uL Lactate 0.5 (0.20-2.00) mmol/L Sodium (136-148) mmol/L Potassium (3.5-5.1) mmol/L Chloride (98-107) mmol/L Carbon Dioxide (21.0-32.0) mmol/L BUN (7.0-18.0) mg/dL Creatinine (0.8-1.3) mg/dL Est Cr Clr Drug Dosing mL/min Estimated GFR (MDRD) ml/min Glucose (74-106) mg/dL Calcium (8.5-10.1) mg/dL Total Bilirubin (0.2-1.0) mg/dL AST (15-37) IU/L ALT (14-63) IU/L Alkaline Phosphatase (46-116) U/L Troponin I < 0.050 (0.000-0.056) ng/mL Total Protein (6.4-8.2) g/dL Albumin (3.4-5.0) g/dL Globulin (2.6-4.0) g/dL Albumin/Globulin Ratio (0.9-1.6) Urine Color YELLOW Urine Appearance CLEAR Urine pH 6.5 (5.0-8.0) Ur Specific [place] <= 1.005 (1.001-1.035) Urine Protein NEGATIVE (NEGATIVE) mg/dL Urine Glucose (UA) NEGATIVE (NEGATIVE) mg/dL Urine Ketones NEGATIVE (NEGATIVE) mg/dL Urine Occult Blood NEGATIVE (NEGATIVE) Urine Nitrite NEGATIVE (NEGATIVE) Urine Bilirubin NEGATIVE (NEGATIVE) Urine Urobilinogen 0.2 (<2.0) EU/dL Ur Leukocyte Esterase NEGATIVE (NEGATIVE) Blood Type Antibody Screen Result Diagrams: 03/21/19 10:51 03/21/19 10:51 EKG INTERPRETATION EKG Date: 03/21/19 Rhythm: Other (sinus bradycardia) P-Wave: Present QRS: Normal ST-T: Normal QT: Normal *Q Meaningful Use (ADM) - VTE *Q VTE Pharmacological Contraindications *Q: Risk of Bleeding - Problem List (1) Bloody stool SNOMED Code(s): 829879849 ICD Code: K92.1 - MELENA Status: Acute Current Visit: Yes (2) Dizziness SNOMED Code(s): 586555516, 300215300 ICD Code: R42 - DIZZINESS AND GIDDINESS Status: Acute Current Visit: Yes (3) Bradycardia SNOMED Code(s): 37529601 ICD Code: R00.1 - BRADYCARDIA, UNSPECIFIED Status: Acute Current Visit: Yes (4) Hypotension SNOMED Code(s): 74479171 ICD Code: I95.9 - HYPOTENSION, UNSPECIFIED Status: Acute Current Visit: Yes Problem List Initiated/Reviewed/Updated: Yes Orders Last 24hrs: Active Orders 24 hr Category Date Time Status Admission Status [Patient Status] [ADT] Stat ADT 03/21/19 13:40 Active EKG Documentation Completion [RC] STAT Care 03/21/19 13:26 Active CDIFF TOX A+B [OP] Stat Lab 03/21/19 10:28 Ordered CULTURE STOOL + CAMPY+SHIGATOX [RM] Stat Lab 03/21/19 10:28 Ordered Guaiac [OCCULT BLOOD DIAGNOSTIC] [OP] Stat Lab 03/21/19 10:22 Ordered Sodium Chloride 0.9% [Normal Saline] 1,000 ml Med 03/21/19 13:09 Active IV .Bolus Isolation [COMM] Stat Oth 03/21/19 10:28 Ordered Medication Orders Sodium Chloride (Normal Saline) 1,000 mls @ 125 mls/hr IV .Bolus ONE Stop: 03/21/19 21:08 Last Admin: 03/21/19 13:11 Dose: 125 mls/hr Assessment/Plan Comment:: This 23 year old male admitted with hypotension, dizziness and c/o bloody stools. 1. Hypotension: BP increasing with IVFs, unsure if this is near baseline or not. Will check orthostatic BPs due to dizziness upon standing. 2. Dizziness: when getting up, check Orthostatics. Monitor on telemetry. 3. Bloody stools: Sent for hemoccult which actually returned negative, small streak of blood was noted on glove. No hemorrhoids on exam. LLQ, but CT unremarkable. Spoke with Dr Thompson regarding this case, recommended outpatient follow up unless large BM with blood here is noted. Will obtained stool studies to rule out infectious process. Would recommend possibility of colonoscopy for further evaluation. Patient aware of this and agreeable for follow up. Reports he is "starving" will allow soft diet for now. Recheck HH tonight and in am. VTE prophylaxis: SCDs only Dispo: 1-2 days pending improvement.
[2019-03-21] MEDS ORDERED: Ondansetron 4 MG/2 ML SDV IVPUSH PRN (14:38)
[2019-03-21] MEDS: Sodium Chloride 0.9% 1,000 ML IV SCH ×2 (16:05→22:48)
[2019-03-21] MEDS: Acetaminophen 325 MG Tab PO PRN (18:23)
[2019-03-21] MEDS: Pantoprazole 40 MG in Sodium Chloride 0.9% 10 ML IVPUSH SCH (22:48)
[2019-03-22 06:43] LABS: CHLORIDE,CL 108 mmol/L (98-107); SODIUM,NA 143 mmol/L (136-148)
[2019-03-22] MEDS: Sodium Chloride 0.9% 1,000 ML IV SCH (07:16)
--- NOTE | 2019-03-22 10:06 | PCM.DCSUM1 ---
Addendum entered and electronically signed by Chelsey Noriega NP 03/22/19 13:49 : Discharge Summary - Hospital Course Free Text/Narrative:: Prior to discharge patient did have BM. Campylobacter/Cdiff negative. Stool cultures otherwise still pending. Occult of actual stool also negative for blood. Continue follow up as previously mentioned. Brief History: This 23 year old male with no significant pmh presented to the ED today with concerns of bloody stools with associated nausea. he also complains of dizziness when getting up. No passing out, no chest pain or palpitations. He reports he has been having these blood stools for a couple weeks and finally got off of work and felt he should be evaluated. He reports not being able to eat much, but when working for the 2 weeks he ate a lot of pizza and hot pockets. He reports some heartburn along with LLQ pain. He report pain before and after stools, which is sharp in nature. He denies hemorrhoids. He reports family history of Crohns disease, with a brother and Uncle. He denies alcohol use and no NSAID use. He denies recreational drug use. Smokes 1 pack every few days and chews between 1-3 tins daily of tobacco. He reports an appendectomy. No other abdominal surgeries or trauma recently. In the ED No leukocytosis noted, afebrile. Lactate 0.5. UA negative. Abdominal CT with contrast, unremarkable.EKG Sinus rikki, 40s. BP 90-120/50s. He was given NS bolus and IVFs along with Protonix 80 mg IV. He will be admitted observation for LLQ and dizziness. Diagnosis: Stroke: No - Discharge Data Discharge Date: 03/22/19 Discharge Disposition: Home, Self-Care 01 Condition: Stable - Discharge Diagnosis/Problem(s) (1) Bloody stool SNOMED Code(s): 561031134 ICD Code: K92.1 - MELENA Status: Acute Current Visit: Yes (2) Dizziness SNOMED Code(s): 004762570, 610421833 ICD Code: R42 - DIZZINESS AND GIDDINESS Status: Acute Current Visit: Yes (3) Bradycardia SNOMED Code(s): 65302165 ICD Code: R00.1 - BRADYCARDIA, UNSPECIFIED Status: Acute Current Visit: Yes (4) Hypotension SNOMED Code(s): 31924745 ICD Code: I95.9 - HYPOTENSION, UNSPECIFIED Status: Acute Current Visit: Yes - Patient Instructions Diet: Regular Diet as Tolerated, Drink 8-10+ Glasses/Day, GI Soft/Low Residue/ Low Fiber Driving: May Drive Today Showering/Bathing: May Shower Notify Provider of: Fever, Increased Pain, Swelling and Redness, Drainage, Nausea and/or Vomiting - Discharge Plan *PRESCRIPTION DRUG MONITORING PROGRAM REVIEWED*: Not Applicable *COPY OF PRESCRIPTION DRUG MONITORING REPORT IN PATIENT HAMIDA: Not Applicable Prescriptions/Med Rec: Pantoprazole Sodium [Protonix] 40 mg PO DAILY #30 tablet. Home Medications: Home Meds Pantoprazole Sodium [Protonix] 40 mg PO DAILY #30 tablet. 03/22/19 [Rx] Patient Handouts: Hypotension, [id number], Pantoprazole tablets Referrals: Elvis Marie MD [Resident] - 03/30/19 2:30 pm Sharonda Thompson MD [Physician] - 03/28/19 9:30 am - Discharge Summary/Plan Comment DC Time >30 min.: No - Patient Data Vitals - Most Recent: Last Vital Signs Temp 98.6 F 03/22/19 11:00 Pulse 74 03/22/19 11:00 Resp 16 03/22/19 11:00 BP 104/55 L 03/22/19 11:00 Pulse Ox 98 03/22/19 11:00 Orthostatic Blood Pressure [ 103/64 Standing] Orthostatic Blood Pressure [ 100/61 Sitting] Orthostatic Blood Pressure [ 96/49 Supine] Weight - Most Recent: 71.4 kg I&O - Last 24 hours: Intake & Output 03/21/19 03/22/19 03/22/19 22:59 06:59 14:59 Intake Total 350 Output Total 625 Balance -275 Lab Results - Last 24 hrs: Laboratory Results - last 24 hr 03/21/19 03/21/19 03/22/19 Range/Units 13:28 18:45 05:57 WBC 5.82 (4.0-11.0) K/uL RBC 4.17 L (4.50-5.90) M/uL Hgb 13.2 12.7 L (13.0-17.0) g/dL Hct 37.9 L 37.6 L (38.0-50.0) % MCV 90.2 (80.0-98.0) fL MCH 30.5 (27.0-32.0) pg MCHC 33.8 (31.0-37.0) g/dL RDW Std Deviation 40.8 (28.0-62.0) fl RDW Coeff of Robert 12 (11.0-15.0) % Plt Count 177 (150-400) K/uL MPV 9.80 (7.40-12.00) fL Neut % (Auto) 47.9 L (48.0-80.0) % Lymph % (Auto) 41.2 H (16.0-40.0) % Stearns % (Auto) 8.9 (0.0-15.0) % Eos % (Auto) 1.7 (0.0-7.0) % Baso % (Auto) 0.3 (0.0-1.5) % Neut # (Auto) 2.8 (1.4-5.7) K/uL Lymph # (Auto) 2.4 (0.6-2.4) K/uL Stearns # (Auto) 0.5 (0.0-0.8) K/uL Eos # (Auto) 0.1 (0.0-0.7) K/uL Baso # (Auto) 0.0 (0.0-0.1) K/uL Nucleated RBC % 0.0 /100WBC Nucleated RBCs # 0 K/uL Sodium (136-148) mmol/L Potassium (3.5-5.1) mmol/L Chloride (98-107) mmol/L Carbon Dioxide (21.0-32.0) mmol/L BUN (7.0-18.0) mg/dL Creatinine (0.8-1.3) mg/dL Est Cr Clr Drug Dosing mL/min Estimated GFR (MDRD) ml/min Glucose (74-106) mg/dL Calcium (8.5-10.1) mg/dL Troponin I < 0.050 (0.000-0.056) ng/mL 03/22/19 Range/Units 05:57 WBC (4.0-11.0) K/uL RBC (4.50-5.90) M/uL Hgb (13.0-17.0) g/dL Hct (38.0-50.0) % MCV (80.0-98.0) fL MCH (27.0-32.0) pg MCHC (31.0-37.0) g/dL RDW Std Deviation (28.0-62.0) fl RDW Coeff of Robert (11.0-15.0) % Plt Count (150-400) K/uL MPV (7.40-12.00) fL Neut % (Auto) (48.0-80.0) % Lymph % (Auto) (16.0-40.0) % Stearns % (Auto) (0.0-15.0) % Eos % (Auto) (0.0-7.0) % Baso % (Auto) (0.0-1.5) % Neut # (Auto) (1.4-5.7) K/uL Lymph # (Auto) (0.6-2.4) K/uL Stearns # (Auto) (0.0-0.8) K/uL Eos # (Auto) (0.0-0.7) K/uL Baso # (Auto) (0.0-0.1) K/uL Nucleated RBC % /100WBC Nucleated RBCs # K/uL Sodium 143 (136-148) mmol/L Potassium 3.5 (3.5-5.1) mmol/L Chloride 108 H (98-107) mmol/L Carbon Dioxide 27.6 (21.0-32.0) mmol/L BUN 10 (7.0-18.0) mg/dL Creatinine 1.0 (0.8-1.3) mg/dL Est Cr Clr Drug Dosing 116.46 mL/min Estimated GFR (MDRD) > 60.0 ml/min Glucose 86 (74-106) mg/dL Calcium 7.9 L (8.5-10.1) mg/dL Troponin I (0.000-0.056) ng/mL CHERYL Results - Last 24 hrs: Microbiology 03/22/19 11:15 Stool Occult Blood (CHERYL) - Final Stool / Feces NEGATIVE OCCULT BLOOD 03/22/19 11:15 Clostridium difficile Toxin A & B - Final Stool / Feces Negative for C.Diff Toxin/AG 03/22/19 11:15 Campylobacter Antigen Assay - Final Stool / Feces NEGATIVE CAMPYLOBACTER AG 03/21/19 15:30 Stool Occult Blood (CHERYL) - Final Stool / Feces NEGATIVE OCCULT BLOOD Med Orders - Current: Current Medications Acetaminophen (Tylenol) 650 mg PO Q4H PRN PRN Reason: Pain (mild 1-3) Last Admin: 03/22/19 11:34 Dose: 650 mg Sodium Chloride (Normal Saline) 1,000 mls @ 125 mls/hr IV ASDIRECTED YAMILE Last Admin: 03/22/19 07:16 Dose: 125 mls/hr Pantoprazole Sodium 40 mg/ (Sodium Chloride) 10 mls @ 300 mls/hr IVPUSH Q12H [facility] Last Admin: 03/22/19 10:58 Dose: 300 mls/hr Ondansetron HCl (Zofran) 4 mg IVPUSH Q4H PRN PRN Reason: Nausea Discontinued Medications Sodium Chloride (Normal Saline) 1,000 mls @ 999 mls/hr IV STAT ONE Stop: 03/21/19 11:53 Last Admin: 03/21/19 11:26 Dose: 999 mls/hr Sodium Chloride (Normal Saline) 1,000 mls @ 125 mls/hr IV .Bolus ONE Stop: 03/21/19 21:08 Last Admin: 03/21/19 13:11 Dose: 125 mls/hr Iopamidol (Isovue Multipack-370 (76%)) 100 ml IVPUSH ONETIME STA Stop: 03/21/19 12:06 Last Admin: 03/21/19 12:05 Dose: 100 ml Pantoprazole Sodium (Protonix Iv) 80 mg IVPUSH .BOLUS ONE Stop: 03/21/19 11:06 Last Admin: 03/21/19 11:26 Dose: 80 mg Original Note: Discharge Summary - Hospital Course Brief History: This 23 year old male with no significant pmh presented to the ED today with concerns of bloody stools with associated nausea. he also complains of dizziness when getting up. No passing out, no chest pain or palpitations. He reports he has been having these blood stools for a couple weeks and finally got off of work and felt he should be evaluated. He reports not being able to eat much, but when working for the 2 weeks he ate a lot of pizza and hot pockets. He reports some heartburn along with LLQ pain. He report pain before and after stools, which is sharp in nature. He denies hemorrhoids. He reports family history of Crohns disease, with a brother and Uncle. He denies alcohol use and no NSAID use. He denies recreational drug use. Smokes 1 pack every few days and chews between 1-3 tins daily of tobacco. He reports an appendectomy. No other abdominal surgeries or trauma recently. In the ED No leukocytosis noted, afebrile. Lactate 0.5. UA negative. Abdominal CT with contrast, unremarkable.EKG Sinus rikki, 40s. BP 90-120/50s. He was given NS bolus and IVFs along with Protonix 80 mg IV. He will be admitted observation for LLQ and dizziness. Diagnosis: Stroke: No - Discharge Data Discharge Date: 03/22/19 Discharge Disposition: Home, Self-Care 01 Condition: Stable - Discharge Diagnosis/Problem(s) (1) Bloody stool SNOMED Code(s): 676728083 ICD Code: K92.1 - MELENA Status: Acute Current Visit: Yes (2) Dizziness SNOMED Code(s): 267033734, 878080722 ICD Code: R42 - DIZZINESS AND GIDDINESS Status: Acute Current Visit: Yes (3) Bradycardia SNOMED Code(s): 35921601 ICD Code: R00.1 - BRADYCARDIA, UNSPECIFIED Status: Acute Current Visit: Yes (4) Hypotension SNOMED Code(s): 38380250 ICD Code: I95.9 - HYPOTENSION, UNSPECIFIED Status: Acute Current Visit: Yes - Patient Instructions Diet: Regular Diet as Tolerated, Drink 8-10+ Glasses/Day, GI Soft/Low Residue/ Low Fiber Driving: May Drive Today Showering/Bathing: May Shower Notify Provider of: Fever, Increased Pain, Swelling and Redness, Drainage, Nausea and/or Vomiting - Discharge Plan *PRESCRIPTION DRUG MONITORING PROGRAM REVIEWED*: Not Applicable *COPY OF PRESCRIPTION DRUG MONITORING REPORT IN PATIENT HAMIDA: Not Applicable Prescriptions/Med Rec: Pantoprazole Sodium [Protonix] 40 mg PO DAILY #30 tablet. Home Medications: Home Meds Pantoprazole Sodium [Protonix] 40 mg PO DAILY #30 tablet. 03/22/19 [Rx] Patient Handouts: Hypotension, [id number], Pantoprazole tablets Referrals: Elvis Marie MD [Resident] - 03/30/19 2:30 pm Sharonda Thompson MD [Physician] - 03/28/19 9:30 am - Discharge Summary/Plan Comment DC Time >30 min.: No Discharge Summary/Plan Comment: Admitting Diagnoses: Blood per rectum Hypotension Discharge Diagnoses: GERD Ct was admitted secondary to complaints of blood stools and some nausea. He reports these have been intermittent but occurring more recently so he decided he should be evaluated. Overnight he received fluids. Hemoccult x 2 negative. No stools overnight to obtain stool studies. Tolerating soft diet. BP stable as well as HR. Mother in room this morning reports the low BP and HR tend to run in there family. He denies dizziness and appears non toxic. He is eager to go home and will be sent up with PCP and General surgeon for endoscopy for further evaluation with family history of Crohn's disease. he is to return to ED or clinic if concerns should arise. - General Info Date of Service: 03/22/19 Admission Dx/Problem (Free Text: Admission Diagnosis/Problem Admission Diagnosis/Problem Hypotension Subjective Update: Feeling good this morning. Tolerating diet. No abdominal pain. No stools overnight. Eager for discharge home. Functional Status: Reports: Pain Controlled, Tolerating Diet, Ambulating, Urinating - Review of Systems General: Reports: No Symptoms. Denies: Fever, Weakness, Fatigue, Malaise Pulmonary: Reports: No Symptoms. Denies: Shortness of Breath Cardiovascular: Reports: No Symptoms. Denies: Chest Pain Gastrointestinal: Reports: No Symptoms. Denies: Abdominal Pain, Nausea, Vomiting Genitourinary: Reports: No Symptoms. Denies: Dysuria, Frequency, Burning Musculoskeletal: Reports: No Symptoms Skin: Reports: No Symptoms Neurological: Reports: No Symptoms Psychiatric: Reports: No Symptoms - Patient Data Vitals - Most Recent: Last Vital Signs Temp 97.7 F 03/22/19 07:47 Pulse 52 L 03/22/19 07:47 Resp 16 03/22/19 07:47 BP 93/48 L 03/22/19 07:47 Pulse Ox 98 03/22/19 07:47 Orthostatic Blood Pressure [ 103/64 Standing] Orthostatic Blood Pressure [ 100/61 Sitting] Orthostatic Blood Pressure [ 96/49 Supine] Weight - Most Recent: 71.4 kg I&O - Last 24 hours: Intake & Output 04/24/19 04/25/19 04/25/19 22:59 06:59 14:59 Intake Total 350 Output Total 625 Balance -275 Lab Results - Last 24 hrs: Laboratory Results - last 24 hr 03/21/19 03/21/19 03/21/19 Range/Units 10:51 10:51 10:51 WBC 4.91 (4.0-11.0) K/uL RBC 4.65 (4.50-5.90) M/uL Hgb 14.2 (13.0-17.0) g/dL Hct 41.7 (38.0-50.0) % MCV 89.7 (80.0-98.0) fL MCH 30.5 (27.0-32.0) pg MCHC 34.1 (31.0-37.0) g/dL RDW Std Deviation 40.9 (28.0-62.0) fl RDW Coeff of Robert 13 (11.0-15.0) % Plt Count 200 (150-400) K/uL MPV 10.00 (7.40-12.00) fL Neut % (Auto) (48.0-80.0) % Lymph % (Auto) (16.0-40.0) % Stearns % (Auto) (0.0-15.0) % Eos % (Auto) (0.0-7.0) % Baso % (Auto) (0.0-1.5) % Neut # (Auto) (1.4-5.7) K/uL Lymph # (Auto) (0.6-2.4) K/uL Stearns # (Auto) (0.0-0.8) K/uL Eos # (Auto) (0.0-0.7) K/uL Baso # (Auto) (0.0-0.1) K/uL Nucleated RBC % 0.0 /100WBC Nucleated RBCs # 0 K/uL Lactate (0.20-2.00) mmol/L Sodium 143 (136-148) mmol/L Potassium 3.7 (3.5-5.1) mmol/L Chloride 108 H (98-107) mmol/L Carbon Dioxide 28.8 (21.0-32.0) mmol/L BUN 14 (7.0-18.0) mg/dL Creatinine 1.0 (0.8-1.3) mg/dL Est Cr Clr Drug Dosing 116.85 mL/min Estimated GFR (MDRD) > 60.0 ml/min Glucose 94 (74-106) mg/dL Calcium 8.6 (8.5-10.1) mg/dL Total Bilirubin 0.9 (0.2-1.0) mg/dL AST 12 L (15-37) IU/L ALT 15 (14-63) IU/L Alkaline Phosphatase 53 (46-116) U/L Troponin I (0.000-0.056) ng/mL Total Protein 6.7 (6.4-8.2) g/dL Albumin 4.0 (3.4-5.0) g/dL Globulin 2.7 (2.6-4.0) g/dL Albumin/Globulin Ratio 1.5 (0.9-1.6) Urine Color Urine Appearance Urine pH (5.0-8.0) Ur Specific Christopher (1.001-1.035) Urine Protein (NEGATIVE) mg/dL Urine Glucose (UA) (NEGATIVE) mg/dL Urine Ketones (NEGATIVE) mg/dL Urine Occult Blood (NEGATIVE) Urine Nitrite (NEGATIVE) Urine Bilirubin (NEGATIVE) Urine Urobilinogen (<2.0) EU/dL Ur Leukocyte Esterase (NEGATIVE) Blood Type O POSITIVE Antibody Screen NEGATIVE 03/21/19 03/21/19 03/21/19 Range/Units 13:00 13:28 13:28 WBC (4.0-11.0) K/uL RBC (4.50-5.90) M/uL Hgb (13.0-17.0) g/dL Hct (38.0-50.0) % MCV (80.0-98.0) fL MCH (27.0-32.0) pg MCHC (31.0-37.0) g/dL RDW Std Deviation (28.0-62.0) fl RDW Coeff of Robert (11.0-15.0) % Plt Count (150-400) K/uL MPV (7.40-12.00) fL Neut % (Auto) (48.0-80.0) % Lymph % (Auto) (16.0-40.0) % Stearns % (Auto) (0.0-15.0) % Eos % (Auto) (0.0-7.0) % Baso % (Auto) (0.0-1.5) % Neut # (Auto) (1.4-5.7) K/uL Lymph # (Auto) (0.6-2.4) K/uL Stearns # (Auto) (0.0-0.8) K/uL Eos # (Auto) (0.0-0.7) K/uL Baso # (Auto) (0.0-0.1) K/uL Nucleated RBC % /100WBC Nucleated RBCs # K/uL Lactate 0.5 (0.20-2.00) mmol/L Sodium (136-148) mmol/L Potassium (3.5-5.1) mmol/L Chloride (98-107) mmol/L Carbon Dioxide (21.0-32.0) mmol/L BUN (7.0-18.0) mg/dL Creatinine (0.8-1.3) mg/dL Est Cr Clr Drug Dosing mL/min Estimated GFR (MDRD) ml/min Glucose (74-106) mg/dL Calcium (8.5-10.1) mg/dL Total Bilirubin (0.2-1.0) mg/dL AST (15-37) IU/L ALT (14-63) IU/L Alkaline Phosphatase (46-116) U/L Troponin I < 0.050 (0.000-0.056) ng/mL Total Protein (6.4-8.2) g/dL Albumin (3.4-5.0) g/dL Globulin (2.6-4.0) g/dL Albumin/Globulin Ratio (0.9-1.6) Urine Color YELLOW Urine Appearance CLEAR Urine pH 6.5 (5.0-8.0) Ur Specific Christopher <= 1.005 (1.001-1.035) Urine Protein NEGATIVE (NEGATIVE) mg/dL Urine Glucose (UA) NEGATIVE (NEGATIVE) mg/dL Urine Ketones NEGATIVE (NEGATIVE) mg/dL Urine Occult Blood NEGATIVE (NEGATIVE) Urine Nitrite NEGATIVE (NEGATIVE) Urine Bilirubin NEGATIVE (NEGATIVE) Urine Urobilinogen 0.2 (<2.0) EU/dL Ur Leukocyte Esterase NEGATIVE (NEGATIVE) Blood Type Antibody Screen 0403/22/19 03/22/19 Range/Units 18:45 05:57 05:57 WBC 5.82 (4.0-11.0) K/uL RBC 4.17 L (4.50-5.90) M/uL Hgb 13.2 12.7 L (13.0-17.0) g/dL Hct 37.9 L 37.6 L (38.0-50.0) % MCV 90.2 (80.0-98.0) fL MCH 30.5 (27.0-32.0) pg MCHC 33.8 (31.0-37.0) g/dL RDW Std Deviation 40.8 (28.0-62.0) fl RDW Coeff of Robert 12 (11.0-15.0) % Plt Count 177 (150-400) K/uL MPV 9.80 (7.40-12.00) fL Neut % (Auto) 47.9 L (48.0-80.0) % Lymph % (Auto) 41.2 H (16.0-40.0) % Stearns % (Auto) 8.9 (0.0-15.0) % Eos % (Auto) 1.7 (0.0-7.0) % Baso % (Auto) 0.3 (0.0-1.5) % Neut # (Auto) 2.8 (1.4-5.7) K/uL Lymph # (Auto) 2.4 (0.6-2.4) K/uL Stearns # (Auto) 0.5 (0.0-0.8) K/uL Eos # (Auto) 0.1 (0.0-0.7) K/uL Baso # (Auto) 0.0 (0.0-0.1) K/uL Nucleated RBC % 0.0 /100WBC Nucleated RBCs # 0 K/uL Lactate (0.20-2.00) mmol/L Sodium 143 (136-148) mmol/L Potassium 3.5 (3.5-5.1) mmol/L Chloride 108 H (98-107) mmol/L Carbon Dioxide 27.6 (21.0-32.0) mmol/L BUN 10 (7.0-18.0) mg/dL Creatinine 1.0 (0.8-1.3) mg/dL Est Cr Clr Drug Dosing 116.46 mL/min Estimated GFR (MDRD) > 60.0 ml/min Glucose 86 (74-106) mg/dL Calcium 7.9 L (8.5-10.1) mg/dL Total Bilirubin (0.2-1.0) mg/dL AST (15-37) IU/L ALT (14-63) IU/L Alkaline Phosphatase (46-116) U/L Troponin I (0.000-0.056) ng/mL Total Protein (6.4-8.2) g/dL Albumin (3.4-5.0) g/dL Globulin (2.6-4.0) g/dL Albumin/Globulin Ratio (0.9-1.6) Urine Color Urine Appearance Urine pH (5.0-8.0) Ur Specific Christopher (1.001-1.035) Urine Protein (NEGATIVE) mg/dL Urine Glucose (UA) (NEGATIVE) mg/dL Urine Ketones (NEGATIVE) mg/dL Urine Occult Blood (NEGATIVE) Urine Nitrite (NEGATIVE) Urine Bilirubin (NEGATIVE) Urine Urobilinogen (<2.0) EU/dL Ur Leukocyte Esterase (NEGATIVE) Blood Type Antibody Screen CHERYL Results - Last 24 hrs: Microbiology 03/21/19 15:30 Stool Occult Blood (CHERYL) - Final Stool / Feces NEGATIVE OCCULT BLOOD Med Orders - Current: Current Medications Acetaminophen (Tylenol) 650 mg PO Q4H PRN PRN Reason: Pain (mild 1-3) Last Admin: 03/21/19 18:23 Dose: 650 mg Sodium Chloride (Normal Saline) 1,000 mls @ 125 mls/hr IV ASDIRECTED [facility] Last Admin: 03/22/19 07:16 Dose: 125 mls/hr Pantoprazole Sodium 40 mg/ (Sodium Chloride) 10 mls @ 300 mls/hr IVPUSH Q12H [facility] Last Admin: 03/21/19 22:48 Dose: 300 mls/hr Ondansetron HCl (Zofran) 4 mg IVPUSH Q4H PRN PRN Reason: Nausea Discontinued Medications Sodium Chloride (Normal Saline) 1,000 mls @ 999 mls/hr IV STAT ONE Stop: 03/21/19 11:53 Last Admin: 03/21/19 11:26 Dose: 999 mls/hr Sodium Chloride (Normal Saline) 1,000 mls @ 125 mls/hr IV .Bolus ONE Stop: 03/21/19 21:08 Last Admin: 03/21/19 13:11 Dose: 125 mls/hr Iopamidol (Isovue Multipack-370 (76%)) 100 ml IVPUSH ONETIME STA Stop: 03/21/19 12:06 Last Admin: 03/21/19 12:05 Dose: 100 ml Pantoprazole Sodium (Protonix Iv) 80 mg IVPUSH .BOLUS ONE Stop: 03/21/19 11:06 Last Admin: 03/21/19 11:26 Dose: 80 mg - Exam General: Reports: Alert, Oriented, Cooperative Neck: Reports: Supple Lungs: Reports: Clear to Auscultation, Normal Respiratory Effort Cardiovascular: Reports: Regular Rate, Regular Rhythm GI/Abdominal Exam: Normal Bowel Sounds, Soft, Non-Tender Back Exam: Reports: Normal Inspection, Full Range of Motion Extremities: Normal Inspection, Normal Range of Motion, Non-Tender Wound/Incisions: Reports: Healing Well Neurological: Reports: No New Focal Deficit Psy/Mental Status: Reports: Alert, Normal Affect, Normal Mood *Q Meaningful Use (DIS) - VTE *Q VTE Pharmacological Contraindications *Q: Risk of Bleeding
[2019-03-22] MEDS: Pantoprazole 40 MG in Sodium Chloride 0.9% 10 ML IVPUSH SCH (10:58)
[2019-03-22] MEDS: Acetaminophen 325 MG Tab PO PRN (11:34)
[2019-03-22 13:42] VITALS: BP 104/55
== END 2019-03-22 13:21 | disposition home or self-care (01) ==
LOC: MW.ED 10:21 → MW.MS 14:10
PROVIDERS: ADMIT Internal Medicine; ATTEND Internal Medicine
DX: K92.1 Melena (principal); I95.9 Hypotension, unspecified; K21.9 Gastro-esophageal reflux disease without esophagitis; R00.1 Bradycardia, unspecified; F17.210 Nicotine dependence, cigarettes, uncomplicated; F17.220 Nicotine dependence, chewing tobacco, uncomplicated; Z88.0 Allergy status to penicillin; Z88.5 Allergy status to narcotic agent; Z88.8 Allergy status to other drugs, medicaments and biological substances; Z88.7 Allergy status to serum and vaccine; Z83.79 Family history of other diseases of the digestive system
CPT/HCPCS: 36415; 74177; 80048; 80053; 81003; 82272; 83605; 84484; 85014; 85018; 85025; 85027; 86850; 86900; 86901; 87046; 87324; 87899; 93005; 96361; 96374; 96376; 99285; A9270; C9113; G0378; J7040; J7050; Q9967; 99283

== ENCOUNTER 2019-03-29 21:24 | Emergency (ER) | payer BC ==
[2019-03-29] MEDS ORDERED: Pantoprazole 40 MG Vial IVPUSH ONE (21:27)
[2019-03-29] MEDS ORDERED: Aspirin 81 MG Tab.Chew PO ONE (21:27)
[2019-03-29] MEDS ORDERED: Sodium Chloride 0.9% 1,000 ML IV ONE (21:27)
--- NOTE | 2019-03-29 22:23 | EDM.PDOC ---
ED HPI GENERAL MEDICAL PROBLEM - General Chief Complaint: Chest Pain Stated Complaint: CHEST PAIN Time Seen by Provider: 03/29/19 22:20 Source of Information: Reports: Patient - History of Present Illness INITIAL COMMENTS - FREE TEXT/NARRATIVE: HISTORY AND PHYSICAL: History of present illness: Patient had recent inpatient admission over the last week orders thought to maybe have some element of Crohn's disease was working on area oil [place]. There were drinking some painting is generally employed as a flooring mechanic on the rate he complains of left-sided pain worsened by left arm movement and applied pressure to the chest that can certainly reproduce the symptoms he is having appears he has chest wall pain as well as muscle spasm of left pectoralis major No fever nausea vomiting chills sweats no shortness breath headache dizziness palpitation no bowel or urine symptoms no shift no diaphoresis no radiation into arm neck or jaw Review of systems: As per history of present illness and below otherwise all systems reviewed and negative. Past medical history: As per history of present illness and as reviewed below otherwise noncontributory. Surgical history: As per history of present illness and as reviewed below otherwise noncontributory. Social history: No reported history of drug or alcohol abuse. Family history: As per history of present illness and as reviewed below otherwise noncontributory. Physical exam: HEENT: Atraumatic, normocephalic, pupils reactive, negative for conjunctival pallor or scleral icterus, mucous membranes moist, throat clear, neck supple, nontender, trachea midline. Lungs: Clear to auscultation, breath sounds equal bilaterally, chest nontender. Heart: S1S2, regular, negative for clicks, rubs, or JVD. Abdomen: Soft, nondistended, nontender. Negative for masses or hepatosplenomegaly. Negative for costovertebral tenderness. Pelvis: Stable nontender. Genitourinary: Deferred. Rectal: Deferred. Extremities: Atraumatic, negative for cords or calf pain. Neurovascular unremarkable. Neuro: Awake, alert, oriented. Cranial nerves II through XII unremarkable. Cerebellum unremarkable. Motor and sensory unremarkable throughout. Exam nonfocal. Diagnostics: [CBC CMP lipase UA troponin ] Therapeutics: [ normal saline Aspirin Proton X ] Impression: [ producible chest wall pain Muscle spasm ] Definitive disposition and diagnosis as appropriate pending reevaluation and review of above. Left Chest] Pain Score (Numeric/FACES): 8 - Related Data Allergies Allergy/AdvReac Type Severity Reaction Status Date / Time amoxicillin Allergy Intermediate Hives Verified 03/29/19 21:31 morphine Allergy Agitation Verified 03/29/19 21:31 Penicillins Allergy Other Verified 03/29/19 21:31 Tetanus Vaccines and Toxoid Allergy Airway Verified 03/29/19 21:31 Tightness trazodone Allergy Other Verified 03/29/19 21:31 lorazepam [From Ativan] AdvReac Unknown Agitation Verified 03/29/19 21:31 Home Meds: Home Meds Pantoprazole Sodium [Protonix] 40 mg PO DAILY #30 tablet. 03/22/19 [Rx] Past Medical History - Past Health History Medical/Surgical History: Denies Medical/Surgical History HEENT History: Reports: None Cardiovascular History: Reports: None Respiratory History: Reports: Pneumonia, Recurrent Gastrointestinal History: Reports: None Genitourinary History: Reports: None Musculoskeletal History: Reports: Arthritis Neurological History: Reports: None Psychiatric History: Reports: Depression, PTSD Endocrine/Metabolic History: Reports: None Hematologic History: Reports: None Immunologic History: Reports: None Oncologic (Cancer) History: Reports: None Dermatologic History: Reports: None - Infectious Disease History Infectious Disease History: Reports: None - Past Surgical History Head Surgeries/Procedures: Reports: None HEENT Surgical History: Reports: Oral Surgery Respiratory Surgical History: Reports: None GI Surgical History: Reports: Appendectomy Social & Family History - Family History Family Medical History: Noncontributory Cardiac: Reports: [place] Endocrine/Metabolic: Reports: Diabetes, type II - Tobacco Use Smoking Status *Q: Current Every Day Smoker Years of Tobacco use: 7 Packs/Tins Daily: 1 - Caffeine Use Caffeine Use: Reports: Coffee, Energy Drinks - Recreational Drug Use Recreational Drug Use: No - Living Situation & Occupation Living situation: Reports: Single Occupation: Employed ED ROS GENERAL - Review of Systems Review Of Systems: See Below ED EXAM, GENERAL - Physical Exam Exam: See Below Course - Vital Signs Last Recorded V/S: Last Vital Signs Temp 98.3 F 03/29/19 21:31 Pulse 57 L 03/29/19 21:31 Resp 18 03/29/19 21:31 BP 107/68 03/29/19 21:31 Pulse Ox 97 03/29/19 21:31 - Orders/Labs/Meds Orders: Active Orders 24 hr Category Date Time Status EKG Documentation Completion [RC] STAT Care 03/29/19 21:28 Active Chest 1V Frontal [CR] Stat Exams 03/29/19 21:28 Taken COMPREHENSIVE METABOLIC PN,CMP [CHEM] Stat Lab 03/29/19 21:10 Received LIPASE [CHEM] Stat Lab 03/29/19 21:10 Received TROPONIN I [CHEM] Stat Lab 03/29/19 21:10 Received UA RFX CHERYL AND CULT IF INDIC [URIN] Stat Lab 03/29/19 21:28 Ordered Sodium Chloride 0.9% [Normal Saline] 1,000 ml Med 03/29/19 21:27 Active IV STAT Medication Orders Sodium Chloride (Normal Saline) 1,000 mls @ 999 mls/hr IV STAT ONE Stop: 03/29/19 22:27 Last Admin: 03/29/19 21:48 Dose: 999 mls/hr Labs: Laboratory Tests 03/29/19 Range/Units 21:10 WBC 8.47 (4.0-11.0) K/uL RBC 4.67 (4.50-5.90) M/uL Hgb 14.2 (13.0-17.0) g/dL Hct 41.9 (38.0-50.0) % MCV 89.7 (80.0-98.0) fL MCH 30.4 (27.0-32.0) pg MCHC 33.9 (31.0-37.0) g/dL RDW Std Deviation 41.1 (28.0-62.0) fl RDW Coeff of Robert 13 (11.0-15.0) % Plt Count 195 (150-400) K/uL MPV 10.00 (7.40-12.00) fL Neut % (Auto) 58.9 (48.0-80.0) % Lymph % (Auto) 31.2 (16.0-40.0) % [place] % (Auto) 8.5 (0.0-15.0) % Eos % (Auto) 1.2 (0.0-7.0) % Baso % (Auto) 0.2 (0.0-1.5) % Neut # (Auto) 5.0 (1.4-5.7) K/uL Lymph # (Auto) 2.6 H (0.6-2.4) K/uL [place] # (Auto) 0.7 (0.0-0.8) K/uL Eos # (Auto) 0.1 (0.0-0.7) K/uL Baso # (Auto) 0.0 (0.0-0.1) K/uL Nucleated RBC % 0.0 /100WBC Nucleated RBCs # 0 K/uL Meds: Medications Generic Name Dose Route Start Last Admin Trade Name Freq PRN Reason Stop Dose Admin Sodium Chloride 1,000 mls @ 999 mls/hr 03/29/19 21:27 03/29/19 21:48 Normal Saline IV 03/29/19 22:27 999 mls/hr STAT ONE Administration Discontinued Medications Generic Name Dose Route Start Last Admin Trade Name Freq PRN Reason Stop Dose Admin Aspirin 324 mg 03/29/19 21:27 03/29/19 21:49 Aspirin PO 03/29/19 21:28 324 mg ONETIME ONE Administration Pantoprazole Sodium 80 mg 03/29/19 21:27 03/29/19 21:50 Protonix Iv IVPUSH 03/29/19 21:28 80 mg .BOLUS ONE Administration Departure - Departure Time of Disposition: 22:23 Disposition: Home, Self-Care 01 Condition: Good Clinical Impression: Chest wall pain, Muscle spasm - Discharge Information Additional Instructions: The following information is given to patients seen in the emergency department who are being discharged to home. This information is to outline your options for follow-up care. We provide all patients seen in our emergency department with a follow-up referral. The need for follow-up, as well as the timing and circumstances, are variable depending upon the specifics of your emergency department visit. If you don't have a primary care physician on staff, we will provide you with a referral. We always advise you to contact your personal physician following an emergency department visit to inform them of the circumstance of the visit and for follow-up with them and/or the need for any referrals to a consulting specialist. The emergency department will also refer you to a specialist when appropriate. This referral assures that you have the opportunity for follow-up care with a specialist. All of these measure are taken in an effort to provide you with optimal care, which includes your follow-up. Under all circumstances we always encourage you to contact your private physician who remains a resource for coordinating your care. When calling for follow-up care, please make the office aware that this follow-up is from your recent emergency room visit. If for any reason you are refused follow-up, please contact the [facility] emergency department at and asked to speak to the emergency department charge nurse. - My Orders Last 24 Hours: My Active Orders 03/29/19 21:10 COMPREHENSIVE METABOLIC PN,CMP [CHEM] Stat LIPASE [CHEM] Stat TROPONIN I [CHEM] Stat 03/29/19 21:27 Sodium Chloride 0.9% [Normal Saline] 1,000 ml IV STAT 03/29/19 21:28 EKG Documentation Completion [RC] STAT Chest 1V Frontal [CR] Stat UA RFX CHERYL AND CULT IF INDIC [URIN] Stat - Assessment/Plan Last 24 Hours: My Active Orders 03/29/19 21:10 COMPREHENSIVE METABOLIC PN,CMP [CHEM] Stat LIPASE [CHEM] Stat TROPONIN I [CHEM] Stat 03/29/19 21:27 Sodium Chloride 0.9% [Normal Saline] 1,000 ml IV STAT 03/29/19 21:28 EKG Documentation Completion [RC] STAT Chest 1V Frontal [CR] Stat UA RFX CHERYL AND CULT IF INDIC [URIN] Stat
[2019-03-29 22:26] LABS: CHLORIDE,CL 102 mmol/L (98-107); SODIUM,NA 140 mmol/L (136-148)
[2019-03-29 22:43] VITALS: BP 114/69
--- NOTE | 2019-03-29 22:57 | CR ---
INDICATION: Chest pain and dizziness. TECHNIQUE: Upright portable AP image of the chest. COMPARISON: 01/21/2019. FINDINGS: Lungs and pleural spaces clear. Heart, mediastinum and pulmonary vessels normal. No significant osseous abnormality. IMPRESSION: Negative chest. Dictated by Davi Aguilar MD @ Mar 29 2019 10:53PM Signed by Dr. Davi Aguilar @ Mar 29 2019 10:54PM
== END 2019-03-29 22:46 | disposition home or self-care (01) ==
LOC: MW.ED 21:24
DX: R07.89 Other chest pain (principal); F17.210 Nicotine dependence, cigarettes, uncomplicated; M62.838 Other muscle spasm; Z88.1 Allergy status to other antibiotic agents; Z88.5 Allergy status to narcotic agent; Z88.7 Allergy status to serum and vaccine; Z88.8 Allergy status to other drugs, medicaments and biological substances
CPT/HCPCS: 36415; 71045; 80053; 81003; 83690; 84484; 85025; 93005; 96361; 96374; 99285; A9270; C9113; J7040